=== PATIENT | male | born 1960 | race Caucasian/White ===

== ENCOUNTER 2023-09-24 05:44 | Emergency (ER) | payer OTHER, SELFPAY ==
[2023-09-24] VITALS (17 sets, daily range): BP systolic 157; BP diastolic 96; PULSE 73–108; RESP 13–23; TEMP 36.5; O2SAT 91–99; BMI 28.8
--- NOTE | 2023-09-24 05:45 | XRR_ITS ---
PROCEDURE INFORMATION: Exam: XR Chest Exam date and time: 09/24/2023 6:15 AM Age: 62 years old Clinical indication: Pain; Chest pressure; Additional info: Cp TECHNIQUE: Imaging protocol: Radiologic exam of the chest. Views: 1 view. COMPARISON: No relevant prior studies available. FINDINGS: Lungs: Mild chronic interstitial prominence. Pleural spaces: Unremarkable. No pleural effusion. No pneumothorax. Heart/Mediastinum: See Vasculature finding. Vasculature: Mild cardiomegaly and uncoiling of the thoracic aorta each accentuated by the AP positioning. Bones/joints: Unremarkable. XR/XR chest 1V portable [id number] IMPRESSION: No acute findings.
--- NOTE | 2023-09-24 05:46 | ECG_ITS ---
[facility] Test Date: 2023-09-24 Pat Name: Tl Nettles Department: Room: Gender: Male Sample Puller: : 1960 Requested By: Swetha Mejias Order Number: [id number] Gallito MD: John Owens M.D. Measurements Intervals [place] Rate: 98 P: 41 RI: 132 QRS: 82 QRSD: 144 T: 85 QT: 394 QTc: 503 Interpretive Statements SINUS RHYTHM POSSIBLE LEFT ATRIAL ENLARGEMENT [-0.1mV P-WAVE IN V1/V2] RIGHT BUNDLE BRANCH BLOCK [120+ ms QRS DURATION, UPRIGHT V1, 40+ ms S IN I/aVL/V4/V5/V6] No previous ECG available for comparison Electronically Signed On 09-24-2023 13:43:36 HISTOLOGY TECHNOLOGIST by John Owens M.D. [id number] f
--- NOTE | 2023-09-24 05:56 | ED_ITS ---
HPI - Chest Pain 2 General: Chief Complaint: Chest Pain Stated Complaint: CP Time Seen by Provider: 09/24/23 05:45 Source: patient Mode of arrival: ambulatory Limitations: no limitations History of Present Illness: 62-year-old male states that he woke up this morning at 4 AM with chest pains. He states it has been a pressure type pain he is also states he has had some intermittent pains over the last 2 days with shortness of breath he states he had a cough as well or fever states his pain is currently a 3 out of 10 he did receive aspirin nitro in route. Associated symptoms: Reports dyspnea; Deny abdominal pain, fever(s), nausea or vomiting Review of Systems 2 Const: Denies: fever(s), chills, body aches or change in appetite ENMT: Denies: throat pain or dental pain Card: Reports: chest pain Resp: Reports: dyspnea and non-productive cough GI: Denies: abdominal pain, nausea, vomiting or diarrhea Musc: Denies: neck pain or back pain Skin/Breast: Denies: rash Neuro: Denies: headache(s) Physical Exam 2 Const: COMMON NORMALS: no acute distress, patient oriented x3 and healthy appearing HENMT: COMMON NORMALS: normocephalic and atraumatic HEAD & SCALP: n ormocephalic and atraumatic Eye: COMMON NORMALS: Equal, round and reactive pupils present and EOMs intact bilaterally PUPIL: Yes Equal, round and reactive pupils present Neck/C-Spine: COMMON NORMALS: full ROM and supple Chest: COMMONS NORMALS: normal inspection of the chest and normal palpation of entire chest wall Resp: COMMON NORMALS: normal respiratory effort, No retractions, No use of accessory muscles and clear to auscultation bilaterally AUSCULTATION: clear to auscultation bilaterally Cardio: COMMON NORMALS: regular rate, regular rhythm and No murmurs present (Cardio) RATE: regular rate RHYTHM: regular rhythm GI: COMMON NORMALS: Normal to inspection, nondistended, normoactive bowel sounds present, Soft to palpation, non-tender and no masses PALPATION: Yes Soft to palpation Extremity: COMMON NORMALS: normal to inspection and full ROM Neuro: COMMON NORMALS: patient oriented x3, moves all extremities and no focal motor deficits Psych: COMMON NORMALS: mental status grossly normal, Normal thought process present and cooperative THOUGHT PROCESS: Normal thought process present Skin: COMMON NORMALS: no rashes or lesions noted and no wounds GENERAL SKIN EXAM: no rashes or lesions noted Course 2 Vital Signs: Vital signs: Vital Signs Temperature 97.7 F 09/24/23 05:45 Pulse Rate 108 H 09/24/23 08:40 Respiratory Rate 19 H 09/24/23 08:40 Blood Pressure 157/96 09/24/23 09:10 Pulse Oximetry 99 09/24/23 08:40 Oxygen Delivery Me thod Room Air 09/24/23 06:38 MDM - Chest Pain Medical Decision Making Patient presents for chest pain is atypical in nature he is also had cough shortness of breath CT showed a possible pneumonia we will start him on antibiotics. 2-hour troponins normal Medical Records I reviewed the patient's medical records. Lab Data I reviewed the patient's lab results. 09/24/23 06:00 09/24/23 06:00 Radiology Impressions Chest X-Ray 09/24/23 05:45 IMPRESSION: No acute findings. Chest CTA 09/24/23 06:32 IMPRESSION: Semi-solid infiltrates on the right. A mild pneumonia is probably present. Follow-up chest CT in 3 months recommended. Laboratory Results WBC 10.11 10^3/uL (3.29-11.43) 09/24/23 06:00 RBC 4.49 10^6/uL (3.85-5.65) 09/24/23 06:00 Hgb 13.70 g/dL (11.27-16.99) 09/24/23 06:00 Hct 40.9 % (37-53) 09/24/23 06:00 MCV 91.1 fl (82-101) 09/24/23 06:00 MCH 30.5 pg (27-33) 09/24/23 06:00 MCHC 33.5 g/dL (30-55) 09/24/23 06:00 RDW 12.5 % (12.1-15.1) 09/24/23 06:00 Plt Count 288 10^3/cmm (157-399) 09/24/23 06:00 MPV 9.1 fL (7.4-10.4) 09/24/23 06:00 Neut % (Auto) 55.7 % 09/24/23 06:00 Lymph % (Auto) 30.1 % 09/24/23 06:00 [place] % (Auto) 10.4 % 09/24/23 06:00 Eos % (Auto) 2.5 % 09/24/23 06:00 Baso % (Auto) 0.7 % 09/24/23 06:00 Neut # (Auto) 5.64 10^3/uL (1.8-7.7) 09/24/23 06:00 Lymph # (Auto) 3.0 10^3/uL (0.8-4.8) 09/24/23 06:00 [place] # (Auto) 1.1 10^3/uL (0.2-0.9) H 09/24/23 06:00 Eos # (Auto) 0.3 10^3/uL (0.0-0.8) 09/24/23 06:00 Baso # (Auto) 0.1 10^3/uL (0.0-0.1) 09/24/23 06:00 Nucleated RBC % (auto) 0 % 09/24/23 06:00 Nucleated RBCs # 0.0 /100WBC 09/24/23 06:00 D-Dimer 0.79 ug/mLFEU (0-0.59) H 09/24/23 06:00 Sodium 137 mmol/L (136-145) 09/24/23 06:00 Potassium 4.0 mmol/L (3.5-5.1) 09/24/23 06:00 Chloride 103 mmol/L (98-107) 09/24/23 06:00 Carbon Dioxide 23 mmol/L (22-29) 09/24/23 06:00 Anion Gap 15.0 (5-19) 09/24/23 06:00 BUN 15 mg/dL (8-23) 09/24/23 06:00 Creatinine 0.8 mg/dL (0.7-1.2) 09/24/23 06:00 GFR Calculation 98.6 mL/min (90-130) 09/24/23 06:00 Glucose 114 mg/dL (65-115) 09/24/23 06:00 Calculated Osmolality 286 mOsm/kg (285-295) 09/24/23 06:00 Calcium 9.2 mg/dL (8.5-10.5) 09/24/23 06:00 Total Bilirubin 0.3 mg/dL (0.15-1.2) 09/24/23 06:00 AST 35 U/L (0-40) 09/24/23 06:00 ALT 36 U/L (0-41) 09/24/23 06:00 Alkaline Phosphatase 84 U/L (40-130) 09/24/23 06:00 Troponin T Baseline 53 ng/L (0-15) H 09/24/23 06:00 Troponin T 120 Minute 53.11 ng/L (0-15) H 09/24/23 08:03 Delta Troponin T 0.11 ABS# (0-10) 09/24/23 08:03 NT-Pro-B Natriuret Pep 1790 pg/mL (0-125) H 09/24/23 06:00 Total Protein 6.8 g/dL (6.6-8.7) 09/24/23 06:00 Albumin 3.9 g/dL (3.5-5.2) 09/24/23 06:00 Globulin 2.9 g/dL (1.3-4.6) 09/24/23 06:00 All radiology interpretation(s) finalized by discharge EKG Data EKG 1: I personally reviewed and interpreted this EKG as follows: EKG interpretation date: 09/24/23 EKG interpretation time: 05:49 Interpretation: nsr hr [address] or t wave abnormalities qrs 144 qtc 449 Discharge Plan Discharge Patient Disposition: Home Clinical Impression: Pneumonia Chest pain Qualifiers: Chest pain type: unspecified Qualified Code(s): R07.9 - Chest pain, unspecified Condition: Stable Prescriptions: New doxycycline hyclate 100 mg tablet 100 mg PO BID 7 Days Qty: 14 0RF No Action Aspir-81 81 mg Tablet,Delayed Release (Dr/Ec) 81 mg PO DAILY PRN (Reason: Headache) Discharge Orders: Discharge ED (Routine); Ordered 09/24/23 Ordered By: Swetha Mejias Discharge Diet: Advance as tolerated Discharge Activity: Resume usual activity Patient Instructions: Chest Pain (ED), Community Acquired Pneumonia (ED) Coding Level of Care Code ED Front End Drupal Developer for Sherrig Violet
[2023-09-24 06:06] LABS: Basophils # 0.1 10^3/uL (0.0-0.1); Basophils % 0.7 %; Eosinophils # 0.3 10^3/uL (0.0-0.8); Eosinophils % 2.5 %; Hematocrit 40.9 % (37-53); Lymphocytes % 30.1 %; Mean Corpuscular HGB Conc 33.5 g/dL (30-55); Mean Corpuscular Hemoglobin 30.5 pg (27-33); Mean Corpuscular Volume 91.1 fl (82-101); Mean Platelet Volume 9.1 fL (7.4-10.4); Monocytes # 1.1 10^3/uL (0.2-0.9); Monocytes % 10.4 %; Neutrophils # 5.64 10^3/uL (1.8-7.7); Neutrophils % 55.7 %; Nucleated Red Blood Cells % 0 %; Platelet Count 288 10^3/cmm (157-399); Red Blood Count 4.49 10^6/uL (3.85-5.65); Red Cell Distribution Width 12.5 % (12.1-15.1); White Blood Count 10.11 10^3/uL (3.29-11.43)
[2023-09-24 06:22] LABS: D Dimer 0.79 ug/mLFEU (0-0.59)
[2023-09-24 06:27] LABS: Troponin(5th) Baseline 53 ng/L (0-15)
[2023-09-24] MEDS: ipratropium-albuterol 3 mL Neb INHALATION (06:31)
--- NOTE | 2023-09-24 06:32 | CTR_ITS ---
PROCEDURE INFORMATION: Exam: CTA Chest With Contrast Exam date and time: 09/24/2023 6:50 AM Age: 62 years old Clinical indication: Shortness of breath; Additional info: SOB TECHNIQUE: Imaging protocol: Computed tomographic angiography of the chest with contrast. Exam focused on the arteries. 3D rendering (Not supervised by radiologist): MIP and/or 3D reconstructed images were created by the technologist. Radiation optimization: All CT scans at this facility use at least one of these dose optimization techniques: automated exposure control; mA and/or kV adjustment per patient size (includes targeted exams where dose is matched to clinical indication); or iterative reconstruction. Contrast material: OMNI 350; Contrast volume: 86 ml; Contrast route: INTRAVENOUS (IV); REPORTING DATA: Count of CT and Cardiac NM exams in prior 12 months: This patient has received 0 known CTs and 0 known cardiac nuclear medicine studies in the 12 months prior to the current study. COMPARISON: CR (CHEST, ) 09/24/2023 6:15 AM RADIATION DOSE METRICS: Total DLP (mGy-cm): 483.66 FINDINGS: Pulmonary arteries: No evidence of pulmonary embolus. Mild/moderate central adenopathy is present, some of the lymph nodes contain calcifications. Aorta: Unremarkable. No aortic aneurysm. No aortic dissection. Lungs: Small semi-solid opacities in the right lower lobe are probably infiltrates. Follow-up chest CT in 3 months recommended to ensure resolution. Pleural spaces: Very small right pleural effusion. Heart: Unremarkable. No cardiomegaly. No pericardial effusion. Lymph nodes: See Pulmonary arteries finding. Bones/joints: Unremarkable. No acute fracture. Soft tissues: Unremarkable. CT/CT angio chest PE protcl [id number] IMPRESSION: Semi-solid infiltrates on the right. A mild pneumonia is probably present. Follow-up chest CT in 3 months recommended.
[2023-09-24 06:35] LABS: Alanine Aminotransferase 36 U/L (0-41); Albumin Level 3.9 g/dL (3.5-5.2); Alkaline Phosphatase 84 U/L (40-130); Aspartate Amino Transferase 35 U/L (0-40); Blood Urea Nitrogen 15 mg/dL (8-23); Calcium 9.2 mg/dL (8.5-10.5); Carbon Dioxide 23 mmol/L (22-29); Chloride 103 mmol/L (98-107); Globulin 2.9 g/dL (1.3-4.6); Glomerular Filtration Rate 98.6 mL/min (90-130); Glucose 114 mg/dL (65-115); NT Pro B Type Natriuretic Pept 1790 pg/mL (0-125); Osmolality Calculated 286 mOsm/kg (285-295); Sodium 137 mmol/L (136-145); Total Bilirubin 0.3 mg/dL (0.15-1.2); Total Protein 6.8 g/dL (6.6-8.7)
[2023-09-24] MEDS: iohexol 350 mg/mL 500 mL Btl (per mL) IV (07:01)
--- NOTE | 2023-09-24 07:31 | ECG_ITS ---
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 Measurements Intervals [place] Rate: 84 P: 46 TX: 164 QRS: 70 QRSD: 141 T: 97 QT: 426 QTc: 506 Interpretive Statements SINUS RHYTHM WITH OCCASIONAL SUPRAVENTRICULAR PREMATURE COMPLEXES POSSIBLE LEFT ATRIAL ENLARGEMENT [-0.1mV P-WAVE IN V1/V2] RIGHT BUNDLE BRANCH BLOCK [120+ ms QRS DURATION, UPRIGHT V1, 40+ ms S IN I/aVL/V4/V5/V6] No previous ECG available for comparison Electronically Signed On 09-24-2023 13:44:20 SIDEWALK REPAIRER by John Owens M.D. [id number]
--- NOTE | 2023-09-24 07:35 | PC.PHAR ---
pt states he takes no prescription medications-pt states only takes a 81mg aspirin prn for headaches-pt states he had a stroke in 2012 and was on bp meds and blood thinners and other medications he cant remember but states he didnt even take them for a full year states they made him feel worse so he just stop taking them and has been okay without them
[2023-09-24 08:31] LABS: Troponin 5 2HR 53.11 ng/L (0-15); Troponin 5 2HR Delta 0.11 ABS# (0-10)
--- NOTE | 2023-09-24 09:41 | DCPLANNER ---
Message was sent to [facility] to establish PCP. Clinic will contact patient for apt. I sent referral at [phone] on 09/24
== END 2023-09-24 09:19 | disposition home or self-care (01) ==
PROVIDERS: Emergency Provider Emergency Medicine
DX: R07.9 Chest pain, unspecified (principal); J18.9 Pneumonia, unspecified organism
CPT/HCPCS: 36415; 71045; 71275; 80053; 83880; 84484; 85025; 85378; 93005; 94640; 99285; Q9967

== ENCOUNTER 2023-10-30 04:35 | Inpatient (IN) | payer OTHER, SELFPAY ==
[2023-10-30] VITALS (18 sets, daily range): BP systolic 121–171; BP diastolic 75–117; PULSE 93–111; RESP 14–22; TEMP 36.5–36.7; O2SAT 92–98
--- NOTE | 2023-10-30 04:36 | ECG_ITS ---
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 Measurements Intervals [place] Rate: 109 P: 0 IN: 0 QRS: 111 QRSD: 148 T: 7 QT: 383 QTc: 517 Interpretive Statements Sinus tachycardia RIGHT BUNDLE BRANCH BLOCK [120+ ms QRS DURATION, UPRIGHT V1, 40+ ms S IN I/aVL/V4/V5/V6] LEFT POSTERIOR FASCICULAR BLOCK [QRS AXIS > 109, INFERIOR Q] Compared to ECG 09/24/2023 07:31:19 Left posterior fascicular block now present Sinus rhythm no longer present Electronically Signed On 10-30-2023 9:45:01 MOLDED GOODS OPERATOR by John Owens M.D. [id number] f
--- NOTE | 2023-10-30 04:36 | XRR_ITS ---
PROCEDURE INFORMATION: Exam: XR Chest Exam date and time: 10/30/2023 4:41 AM Age: 62 years old Clinical indication: Pain; Shortness of breath; Chest pressure; Patient HX: C/O cp with SOB. TECHNIQUE: Imaging protocol: Radiologic exam of the chest. Views: 1 view. COMPARISON: CT angio chest PE protcl [id number] 09/24/2023 6:50 AM FINDINGS: Lungs: Low lung volumes. There is increased interstitial markings and haziness of the lungs, which in the setting of cardiomegaly is suggestive of pulmonary congestion. Pneumonia should be excluded clinically. Pleural spaces: Unremarkable. No pleural effusion. No pneumothorax. Heart/Mediastinum: Stable cardiomediastinal silhouette. Bones/joints: Degenerative changes of the spine seen. XR/XR chest 1V portable [id number] IMPRESSION: Imaging findings suggestive of pulmonary congestion. Pneumonia should be excluded clinically.
--- NOTE | 2023-10-30 04:59 | ED_ITS ---
HPI - Chest Pain 2 General: Chief Complaint: Chest Pain Stated Complaint: CP Time Seen by Provider: 10/30/23 04:35 Source: patient and EMS Mode of arrival: EMS Limitations: no limitations History of Present Illness: 62-year-old male states that over the st week he has been having intermittent chest pains he is also been having shortness of breath as well. He states been treated for pneumonia but states his dyspnea is worsened. He denies any severe cough. Patient is on 3 L oxygen here states he typically does not wear oxygen at home. Denies any worsening improving factors. Associated symptoms: Reports dyspnea; Deny abdominal pain, fever(s), nausea or vomiting Review of Systems 2 Const: Denies: fever(s), chills, body aches or change in appetite ENMT: Denies: throat pain or dental pain Card: Reports: chest pain Resp: Reports: dyspnea GI: Denies: abdominal pain, nausea, vomiting or diarrhea Musc: Denies: neck pain or back pain Skin/Breast: Denies: rash Neuro: Denies: headache(s) PFSH ED 2 PFSH: Medical History (Updated 10/30/23 @ 06:50 by Saleem Cardozo MD) HTN (hypertension) with goal to be determined History of CVA (cerebrovascular accident) Surgical History (Updated 10/30/23 @ 06:47 by Saleem Cardozo MD) History of appendectomy Family History (Updated 10/30/23 @ 06:48 by Saleem Cardozo MD) Other CAD (coronary artery disease) Social History (Updated 10/30/23 @ 06:48 by Saleem Cardozo MD) Smoking and tobacco/nicotine status: current every day tobacco/nicotine user Alcohol intake: never Substance/Drug Use: never Course 2 Vital Signs: Vital signs: Vital Signs Temperature 98.0 F 10/30/23 16:00 Pulse Rate 103 H 10/30/23 16:00 Respiratory Rate 14 10/30/23 16:00 Blood Pressure 121/75 10/30/23 16:00 Pulse Oximetry 93 10/30/23 16:00 Oxygen Delivery Me thod Nasal Cannula 10/30/23 16:00 Oxygen Flow Rate 2 10/30/23 13:14 MDM - Chest Pain Medical Decision Making Patient presents for shortness of breath he does have pulmonary edema cardiomegaly likely CHF exacerbation. Brian wynn spoke to the hospitalist will admit as he is requiring oxygen at this time. Medical Records I reviewed the patient's medical records. Lab Data I reviewed the patient's lab results. 10/30/23 04:49 10/30/23 04:49 Radiology Impressions Chest X-Ray 10/30/23 04:36 IMPRESSION: Imaging findings suggestive of pulmonary congestion. Pneumonia should be excluded clinically. Chest CTA 10/30/23 05:25 IMPRESSION: 1. No pulmonary embolus. 2. Imaging findings of pulmonary edema with small bilateral pleural effusions. COMMENTS: The presence of pulmonary emphysema on CT is an independent risk factor for lung cancer. In the absence of a history or active diagnosis of lung cancer, it is recommended that this patient with emphysema be evaluated for enrollment in a low dose CT lung cancer screening program. Abdomen/Pelvis CT 10/30/23 14:31 IMPRESSION: 1. High density material throughout the intrarenal collecting systems, renal pelves, and ureters bilaterally as well as throughout the urinary bladder. This is probably excreted contrast if intravascular contrast has been recently given. If not, then this is probably blood. Please correlate clinically. 2. Additional details as above. COMMENTS: Consistent with the [employer] [employer]'s Incidental Findings Committee white paper (J Am Mansoor Radiol 2018): Any incidental renal lesion less than 1 cm or classified as too small to characterize, or any incidental cystic renal lesion characterized as simple-appearing, is likely benign. No follow-up imaging is recommended for these lesions per consensus recommendations based on imaging criteria. Laboratory Results WBC 9.43 10^3/uL (3.29-11.43) 10/30/23 04:49 RBC 4.56 10^6/uL (3.85-5.65) 10/30/23 04:49 Hgb 13.70 g/dL (11.27-16.99) 10/30/23 04:49 Hct 40.9 % (37-53) 10/30/23 04:49 MCV 89.7 fl (82-101) 10/30/23 04:49 MCH 30.0 pg (27-33) 10/30/23 04:49 MCHC 33.5 g/dL (30-55) 10/30/23 04:49 RDW 13.2 % (12.1-15.1) 10/30/23 04:49 Plt Count 261 10^3/cmm (157-399) 10/30/23 04:49 MPV 9.3 fL (7.4-10.4) 10/30/23 04:49 Neut % (Auto) 59.0 % 10/30/23 04:49 Lymph % (Auto) 28.3 % 10/30/23 04:49 [place] % (Auto) 9.7 % 10/30/23 04:49 Eos % (Auto) 1.9 % 10/30/23 04:49 Baso % (Auto) 0.5 % 10/30/23 04:49 Neut # (Auto) 5.56 10^3/uL (1.8-7.7) 10/30/23 04:49 Lymph # (Auto) 2.7 10^3/uL (0.8-4.8) 10/30/23 04:49 [place] # (Auto) 0.9 10^3/uL (0.2-0.9) 10/30/23 04:49 Eos # (Auto) 0.2 10^3/uL (0.0-0.8) 10/30/23 04:49 Baso # (Auto) 0.1 10^3/uL (0.0-0.1) 10/30/23 04:49 Nucleated RBC % (auto) 0 % 10/30/23 04:49 Nucleated RBCs # 0.0 /100WBC 10/30/23 04:49 PT 14.70 SECONDS (12.1-14.9) 10/30/23 04:49 INR 1.11 (0.8-1.2) 10/30/23 04:49 D-Dimer 1.07 ug/mLFEU (0-0.59) H 10/30/23 04:49 Sodium 138 mmol/L (136-145) 10/30/23 04:49 Potassium 3.7 mmol/L (3.5-5.1) 10/30/23 04:49 Chloride 103 mmol/L (98-107) 10/30/23 04:49 Carbon Dioxide 25 mmol/L (22-29) 10/30/23 04:49 Anion Gap 13.7 (5-19) 10/30/23 04:49 BUN 14 mg/dL (8-23) 10/30/23 04:49 Creatinine 0.8 mg/dL (0.7-1.2) 10/30/23 04:49 GFR Calculation 98.6 mL/min (90-130) 10/30/23 04:49 Glucose 119 mg/dL (65-115) H 10/30/23 04:49 Estimat Average Glucose 123 10/30/23 04:49 Hemoglobin A1c 5.9 % (4.0-6.0) 10/30/23 04:49 Calculated Osmolality 288 mOsm/kg (285-295) 10/30/23 04:49 Lactic Acid 1.2 mmol/L (0.5-2.2) 10/30/23 04:49 Calcium 9.4 mg/dL (8.5-10.5) 10/30/23 04:49 Phosphorus 4.3 mg/dL (2.5-4.5) 10/30/23 04:49 Magnesium 1.9 mg/dL (1.7-2.3) 10/30/23 04:49 Total Bilirubin 0.4 mg/dL (0.15-1.2) 10/30/23 04:49 AST 43 U/L (0-40) H 10/30/23 04:49 ALT 45 U/L (0-41) H 10/30/23 04:49 Alkaline Phosphatase 79 U/L (40-130) 10/30/23 04:49 Troponin T Baseline 52 ng/L (0-15) H 10/30/23 04:49 C-Reactive Protein 13.8 mg/L (0.0-4.9) H 10/30/23 04:49 NT-Pro-B Natriuret Pep 3650 pg/mL (0-125) H 10/30/23 04:49 Total Protein 6.7 g/dL (6.6-8.7) 10/30/23 04:49 Albumin 4.1 g/dL (3.5-5.2) 10/30/23 04:49 Globulin 2.6 g/dL (1.3-4.6) 10/30/23 04:49 Triglycerides 68 mg/dL (0-150) 10/30/23 04:49 Cholesterol 171 mg/dL (0-200) 10/30/23 04:49 LDL Cholesterol, Calc 112 mg/dL (50-129) 10/30/23 04:49 HDL Cholesterol 45 mg/dL (60-100) L 10/30/23 04:49 LDL/HDL Ratio 2.49 RATIO (0.00-3.22) 10/30/23 04:49 Cholesterol/HDL Ratio 3.80 mg/dL (1.0-5.00) 10/30/23 04:49 Procalcitonin 0.05 ng/mL (0-0.5) 10/30/23 04:49 TSH 2.43 uIU/mL (0.27-4.20) 10/30/23 04:49 Influenza Type A Ag negative (Negative) 10/30/23 04:49 Influenza Type B Ag negative (Negative) 10/30/23 04:49 SARS-CoV-2 Ag (Rapid) negative (Negative) 10/30/23 04:49 All radiology interpretation(s) finalized by discharge EKG Data EKG 1: I personally reviewed and interpreted this EKG as follows: EKG interpretation date: 10/30/23 EKG interpretation time: 04:42 Interpretation: atrial flutter hr [address] elevation qrs 148 qtc 447 Discharge Plan Discharge Patient Disposition: Admitted As Inpatient Admit Provider: Saleem Cardozo Clinical Impression: Acute respiratory failure with hypoxemia Pulmonary edema Qualifiers: Chronicity: acute Qualified Code(s): J81.0 - Acute pulmonary edema Condition: Stable Coding Level of Care Code ED Cobbler Apprentice for Josep Lazo
[2023-10-30 05:01] LABS: Basophils # 0.1 10^3/uL (0.0-0.1); Basophils % 0.5 %; Eosinophils # 0.2 10^3/uL (0.0-0.8); Eosinophils % 1.9 %; Hematocrit 40.9 % (37-53); Lymphocytes # 2.7 10^3/uL (0.8-4.8); Lymphocytes % 28.3 %; Mean Corpuscular HGB Conc 33.5 g/dL (30-55); Mean Corpuscular Volume 89.7 fl (82-101); Mean Platelet Volume 9.3 fL (7.4-10.4); Monocytes # 0.9 10^3/uL (0.2-0.9); Monocytes % 9.7 %; Neutrophils # 5.56 10^3/uL (1.8-7.7); Nucleated Red Blood Cells % 0 %; Platelet Count 261 10^3/cmm (157-399); Red Blood Count 4.56 10^6/uL (3.85-5.65); Red Cell Distribution Width 13.2 % (12.1-15.1); White Blood Count 9.43 10^3/uL (3.29-11.43)
[2023-10-30] MEDS: dilTIAZem 5 mg/mL SDV 5 mL 15 MG IVP (05:01)
[2023-10-30 05:14] LABS: INR 1.11 (0.8-1.2)
[2023-10-30 05:17] LABS: D Dimer 1.07 ug/mLFEU (0-0.59)
[2023-10-30 05:24] LABS: Troponin(5th) Baseline 52 ng/L (0-15)
--- NOTE | 2023-10-30 05:25 | CTR_ITS ---
PROCEDURE INFORMATION: Exam: CTA Chest With Contrast Exam date and time: 10/30/2023 5:31 AM Age: 62 years old Clinical indication: Pain and abnormal findings; Abnormal diagnostic tests; Elevated d-dimer; Shortness of breath; Chest pressure; Patient HX: Cp with SOB. Dimer 1.07 TECHNIQUE: Imaging protocol: Computed tomographic angiography of the chest with contrast. Exam focused on the arteries. 3D rendering (Not supervised by radiologist): MIP and/or 3D reconstructed images were created by the technologist. Radiation optimization: All CT scans at this facility use at least one of these dose optimization techniques: automated exposure control; mA and/or kV adjustment per patient size (includes targeted exams where dose is matched to clinical indication); or iterative reconstruction. Contrast material: OMNI 350; Contrast volume: 100 ml; Contrast route: INTRAVENOUS (IV); COMPARISON: CT angio chest PE protcl [id number] 09/24/2023 6:50 AM RADIATION DOSE METRICS: Total DLP (mGy-cm): 493.68 FINDINGS: Pulmonary arteries: Normal. No pulmonary emboli. Aorta: No aortic aneurysm. No aortic dissection. Mild diffuse atherosclerotic disease is present. Lungs: Mild paraseptal emphysema is present. There is slight mosaic pattern of attenuation of the lungs, in association with scattered bilateral ground-glass opacities, paraseptal thickening and small bilateral pleural effusions, which in the setting of cardiomegaly is consistent with pulmonary edema. Compressive bilateral atelectasis noted. Pneumonia should be excluded clinically. No pneumothorax. Tiny calcified granuloma noted in the right lobe upper lobe. Pleural spaces: See Lungs finding. Heart: Mildly enlarged heart. Normal RV/LV ratio of 0.9. Coronary atherosclerotic calcifications seen. No pericardial effusion. Lymph nodes: Small reactive mediastinal lymph nodes noted, the largest in the right paratracheal region measuring 1.3 cm in transverse dimension. Small mediastinal and right hilar calcified lymph nodes noted, likely sequela of previous granulomatous disease. Bones/joints: Degenerative changes of the spine seen. Soft tissues: Unremarkable. CT/CT angio chest PE protcl [id number] IMPRESSION: 1. No pulmonary embolus. 2. Imaging findings of pulmonary edema with small bilateral pleural effusions. COMMENTS: The presence of pulmonary emphysema on CT is an independent risk factor for lung cancer. In the absence of a history or active diagnosis of lung cancer, it is recommended that this patient with emphysema be evaluated for enrollment in a low dose CT lung cancer screening program.
[2023-10-30 05:29] LABS: Alanine Aminotransferase 45 U/L (0-41); Albumin Level 4.1 g/dL (3.5-5.2); Alkaline Phosphatase 79 U/L (40-130); Anion Gap 13.7 (5-19); Aspartate Amino Transferase 43 U/L (0-40); Blood Urea Nitrogen 14 mg/dL (8-23); Calcium 9.4 mg/dL (8.5-10.5); Carbon Dioxide 25 mmol/L (22-29); Chloride 103 mmol/L (98-107); Globulin 2.6 g/dL (1.3-4.6); Glomerular Filtration Rate 98.6 mL/min (90-130); Glucose 119 mg/dL (65-115); NT Pro B Type Natriuretic Pept 3650 pg/mL (0-125); Osmolality Calculated 288 mOsm/kg (285-295); Potassium 3.7 mmol/L (3.5-5.1); Sodium 138 mmol/L (136-145); Total Bilirubin 0.4 mg/dL (0.15-1.2); Total Protein 6.7 g/dL (6.6-8.7)
[2023-10-30 05:31] LABS: Influenza A by IFA negative (Negative); Influenza B by IFA negative (Negative)
[2023-10-30 05:32] LABS: SARS Covid-2 Antigen negative (Negative)
[2023-10-30] MEDS: iohexol 350 mg/mL 500 mL Btl (per mL) IV (05:42)
[2023-10-30] MEDS: FUROsemide 10 mg/mL SDV 4mL 40 MG IVP ×2 (05:50→12:51)
--- NOTE | 2023-10-30 06:40 | USCV_ITS ---
Tl Nettles Age: 62 Gender: M : 1960 Exam Date: 10/30/2023 09:46 Ordering Phys: Saleem Cardozo MD Technologist: Reynold Gu Exam Location[place] [facility] [place] Indication: sob BP: 153 / 90 HR: 107 Rhythm: Sinus Technical Quality: Poor MEASUREMENTS (Male / Female) Normal Values 2D ECHO LV Ejection Fraction MOD 2C 29.7 % LV Ejection Fraction 2C AL 31.1 % LA Diameter 3.8 cm LA Width 4.0 cm LA Height 5.4 cm RA Width 4.4 cm RA Height 4.1 cm IVC Diameter 1.8 cm M-MODE Aortic Annulus Diameter 3.0 cm LA Ao Ratio MM 1.2 MV E Point Septal Separation 1.1 cm DOPPLER AV Peak Velocity 139.0 cm/s LVOT Peak Velocity 67.0 cm/s MV Peak Velocity 137.0 cm/s MV E' Velocity 6.0 cm/s TR Peak Velocity 211.8 cm/s TR Peak Gradient 17.9 mmHg TR Mean Velocity 162.8 cm/s TR Mean Gradient 11.2 mmHg TR Velocity Time Integral 46.0 cm Right Atrial Pressure 3.0 mmHg Pulmonary Artery Systolic Pressu 20.9 mmHg PV Peak Velocity 78.0 cm/s RV Acceleration Time 0.1 s RV Ejection Time 0.2 s RV AcT/ET 0.4 FINDINGS Left Ventricle The examination is technically poor with exception of the apical view. The ventricle appears at least mildly enlarged. There appears to be global hypokinesis in the apical view with an ejection fraction of about 35%. There are no obvious wall motion disturbances however the other views would confirm this if they were present. Grade 2 diastolic dysfunction. Right Ventricle Normal right ventricular size and systolic function. Normal right ventricular systolic pressure. Right Atrium Mildly increased right atrial size. Left Atrium Mildly increased left atrial size. Mitral Valve Mitral valve not well visualized. Aortic Valve Aortic valve not well visualized. Tricuspid Valve Tricuspid valve not well visualized. Pulmonic Valve Pulmonic valve not well visualized. Pericardium Normal pericardium without effusion. Aorta Aorta not well visualized. IVC The inferior vena cava appears normal. CONCLUSIONS The examination is technically poor with exception of the apical view. The ventricle appears at least mildly enlarged. There appears to be global hypokinesis in the apical view with an ejection fraction of about 35%. There are no obvious wall motion disturbances however the other views would confirm this if they were present. Grade 2 diastolic dysfunction. There are no prior echocardiogram studies to compare. Dr. John Owens MD (Electronically Signed) Final Date: 30 October 2023 17:21 S
--- NOTE | 2023-10-30 06:44 | P.HP_ITS ---
Providers/Chief Complaint 2 Admitting Physician: Saleem Cardozo MD Chief Complaint: CP History of Present Illness Tl Nettles is a 62 year old male current smoker, has been smoking since he is 17, no formal diagnosis of COPD, history of CVA, no history of CAD, no history of CHF, history of depression, hypertension, who presents to [facility] due to a 2-week history of shortness of breath, and cough. Patient tells me that for the last 2 weeks he is felt increasingly short of breath, shortness of breath with exertion, with a nonproductive cough, he presented to the emergency room about 2 weeks ago he, completed antibiotic therapy however continues to have shortness of breath and cough saw his primary care provider got another course of antibiotics but continued to have shortness of breath, denies any current chest pain, nonproductive cough persists, no hemoptysis, no calf pain, no recent travel Review of Systems 2 Const: Denies: fever(s) or chills Card: Denies: chest pain Resp: Reports: dyspnea and non-productive cough GI: Denies: abdominal pain : Denies: flank pain Neuro: Denies: headache(s) Medications/Allergies Home Medications Medication Instructions Recorded Confirmed Last Taken Type aspirin 81 mg tablet,delayed 81 mg PO DAILY PRN Headache 09/24/23 09/24/23 Unknown History release Allergies Allergy/AdvReac Type Severity Reaction Status Date / Time No Known Allergies Allergy Verified 09/24/23 05:54 PFSH Acute 2 PFSH: Medical History (Updated 10/30/23 @ 06:50 by Saleem Cardozo MD) HTN (hypertension) with goal to be determined History of CVA (cerebrovascular accident) Surgical History (Updated 10/30/23 @ 06:47 by Saleem Cardozo MD) History of appendectomy Family History (Updated 10/30/23 @ 06:48 by Saleem Cardozo MD) Other CAD (coronary artery disease) Social History (Updated 10/30/23 @ 06:48 by Saleem Cardozo MD) Smoking and tobacco/nicotine status: current every day tobacco/nicotine user Alcohol intake: never Substance/Drug Use: never Vitals/I&O/Wt Last Vital Signs Temp 97.7 F 10/30/23 04:44 Pulse 93 10/30/23 05:51 Resp 16 10/30/23 05:51 BP 149/99 10/30/23 05:51 Pulse Ox 93 10/30/23 05:53 O2 Del Method Room Air 10/30/23 05:53 O2 Flow Rate 2 10/30/23 05:51 Weight last 48 hrs Weight 89.358 kg Physical Exam 2 Const: COMMON NORMALS: no acute distress and patient oriented x3 HENMT: COMMON NORMALS: normocephalic HEAD & SCALP: normocephalic Eye: COMMON NORMALS: Equal, round and reactive pupils present and EOMs intact bilaterally Neck/C-Spine: COMMON NORMALS: no JVD Lymph: LYMPHATIC: no lymphadenopathy noted Resp: COMMON NORMALS: normal respiratory effort, No retractions and No use of accessory muscles AUSCULTATION: crackles and wheezes Cardio: COMMON NORMALS: regular rate, regular rhythm, S1 normal heart sound present and S2 normal heart sound present RATE: regular rate RHYTHM: r egular rhythm HEART SOUNDS: S1 normal heart sound present and S2 normal heart sound present GI: COMMON NORMALS: Normal to inspection, nondistended, normoactive bowel sounds present, Soft to palpation and non-tender Extremity: COMMON NORMALS: no calf tenderness and no pedal edema Neuro: COMMON NORMALS: patient oriented x3, CN's II-XII intact bilaterally and moves all extremities Data 10/30/23 04:49 10/30/23 04:49 A&P Assessment and plan (1) COPD exacerbation: (2) CHF exacerbation: (3) NSTEMI (non-ST elevated myocardial infarction): (4) Transaminitis: Plan Shortness of breath ? Multifactorial from COPD, CHF COPD ? No formal diagnosis, ? Solu-Medrol 40 mg IV push every 8 hours ?DuoNeb ?budesonide CHF exacerbation -Type unknown -Elevated BNP -CT angiogram showing pulmonary edema -Lasix 40 mg IV push every 12 hours NSTEMI -Serial EKGs, serial troponins, telemetry monitoring -Cardiac echo -aspirin, statin, bblocker afib/atrial tachycardia -s/p cardizem -telemetry monitoring -currently in sinus rhythm Transaminitis HTN -metoprolol Full code Lovenox for DVT prophylaxis Attestations 2 Medical Necessity Statement*: Patient requires hospitalization, inpatient, greater than 2 minutes, for shortness of breath secondary to COPD exacerbation, CHF exacerbation, NSTEMI, transaminitis Diagnoses COPD exacerbation J44.1 CHF exacerbation I50.9 NSTEMI (non-ST elevated myocardial infarction) I21.4 Transaminitis R74.01
[2023-10-30 07:02] LABS: Add Urine Microscopic? NO; Charge for UA Resulting for Rev
[2023-10-30 07:10] LABS: Bilirubin Urine Neg (Negative); Blood Urine Neg (Negative); Glucose Urine UA Norm (Normal); Ketones Urine Negative (Negative); Leukocyte Esterase Urine Negative (Negative); Nitrate Urine Negative (Negative); Protein Urine Neg (Negative); Urine Appearance Clear (CLEAR); Urine Color Straw (Yellow); Urobilinogen Urine Norm (Negative); pH Urine 5 (5-7)
[2023-10-30 07:19] LABS: Lactic Sepsis W/Reflex 1.2 mmol/L (0.5-2.2)
[2023-10-30 07:21] LABS: Estmated Average Glucose 123; Hemoglobin A1C 5.9 % (4.0-6.0)
[2023-10-30 07:25] LABS: Procalcitonin 0.05 ng/mL (0-0.5); Thyroid Stimulating Hormone 2.43 uIU/mL (0.27-4.20)
[2023-10-30 07:36] LABS: C Reactive Protein 13.8 mg/L (0.0-4.9); Cholesterol 171 mg/dL (0-200); HDL Cholesterol 45 mg/dL (60-100); LDL Cholesterol Calculated 112 mg/dL (50-129); LDL HDL Ratio 2.49 RATIO (0.00-3.22); Magnesium 1.9 mg/dL (1.7-2.3); Phosphorus 4.3 mg/dL (2.5-4.5); Triglycerides 68 mg/dL (0-150)
[2023-10-30 07:41] LABS: INR 1.12 (0.8-1.2)
[2023-10-30 07:49] LABS: ABG PCO2 39.5 mmHg (35-45); ABG PH Result 7.43 (7.35-7.45); Arterial Blood Gas Hematocrit 44.3 % (42-52); Base Excess ABG 1.8 mmol/L (-2.0-2.0); Blood Gas Allen Test Pos; Blood Gas Operator Identificat MONRO; Blood Gas Sample Site Radial, left; Blood Gas Sample Type Arterial; HCO3 ABG 26.2 mmol/L (22-26); Oxygen Device ROOM AIR; PO2 ABG 76.2 mmHg (80.0-100.0); PO2 FiO2 Ratio Arterial Blood 0
[2023-10-30 07:51] LABS: Troponin 5 2HR 56.99 ng/L (0-15); Troponin 5 2HR Delta 4.99 ABS# (0-10)
[2023-10-30] MEDS: pantoprazole 40 mg SDV IVP (08:02)
[2023-10-30] MEDS: enoxaparin 40 mg/0.4 mL Syringe SUBCUT (08:02)
[2023-10-30] MEDS: aspirin 81 mg EC Tablet PO (08:03)
[2023-10-30] MEDS: methylPREDNISolone sod succ 40 mg/mL INJ IVP (08:03)
[2023-10-30] MEDS: budesonide 0.5 mg/2 mL Neb 0.25 MG INHALATION ×2 (09:04→20:46)
[2023-10-30] MEDS: ipratropium-albuterol 3 mL Neb INHALATION ×3 (09:04→20:46)
--- NOTE | 2023-10-30 09:15 | ECG_ITS ---
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 Measurements Intervals [place] Rate: 106 P: 54 OR: 166 QRS: 105 QRSD: 147 T: 26 QT: 392 QTc: 523 Interpretive Statements SINUS TACHYCARDIA LEFT ATRIAL ENLARGEMENT [-0.15mV P-WAVE IN V1/V2] RIGHT AXIS DEVIATION [QRS AXIS > 100] RIGHT BUNDLE BRANCH BLOCK [120+ ms QRS DURATION, UPRIGHT V1, 40+ ms S IN I/aVL/V4/V5/V6] Compared to ECG 10/30/2023 04:42:22 Atrial abnormality now present Right-axis deviation now present Left posterior fascicular block no longer present Electronically Signed On 10-31-2023 8:34:44 PULL TAB DEALER by John Owens M.D. [id number]
[2023-10-30] MEDS: metoprolol tartrate 25 mg Tablet PO ×2 (09:55→20:53)
--- NOTE | 2023-10-30 10:01 | PC.PHAR ---
pt states he takes no prescription medications only aspirin prn
--- NOTE | 2023-10-30 12:01 | W.PM.EVENTAC ---
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
[2023-10-30 12:32] LABS: Troponin 5 6HR 45.31 ng/L (0-15)
[2023-10-30 12:34] LABS: Troponin 5 6HR Delta -6.69 ng/L (0-12)
[2023-10-30] MEDS: doxycycline 100 mg Tablet PO ×2 (12:51→17:37)
--- NOTE | 2023-10-30 13:19 | ECG_ITS ---
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 Measurements Intervals [place] Rate: 101 P: 19 WA: 156 QRS: -2 QRSD: 153 T: 25 QT: 411 QTc: 533 Interpretive Statements SINUS TACHYCARDIA LEFT ATRIAL ENLARGEMENT [-0.15mV P-WAVE IN V1/V2] INDETERMINATE AXIS RIGHT BUNDLE BRANCH BLOCK [120+ ms QRS DURATION, UPRIGHT V1, 40+ ms S IN I/aVL/V4/V5/V6] MODERATE T-WAVE ABNORMALITY, CONSIDER LATERAL ISCHEMIA [-0.1+ mV T-WAVE IN I/aVL/V5/V6] MODERATE T-WAVE ABNORMALITY, CONSIDER INFERIOR ISCHEMIA [-0.1+ mV T-WAVE IN II/aVF] Compared to ECG 10/30/2023 09:15:41 Indeterminate axis now present T-wave abnormality now present Possible ischemia now present Right-axis deviation no longer present Electronically Signed On 10-31-2023 8:28:34 JORDAN WORKER by John Owens M.D. [id number]
--- NOTE | 2023-10-30 14:31 | CTR_ITS ---
PROCEDURE INFORMATION: Exam: CT Abdomen And Pelvis Without Contrast Exam date and time: 10/30/2023 3:15 PM Age: 62 years old Clinical indication: Abdominal pain; Epigastric; Prior surgery; Surgery date: 6+ months; Surgery type: Appy; Additional info: Abd pain TECHNIQUE: Imaging protocol: Computed tomography of the abdomen and pelvis without contrast. Radiation optimization: All CT scans at this facility use at least one of these dose optimization techniques: automated exposure control; mA and/or kV adjustment per patient size (includes targeted exams where dose is matched to clinical indication); or iterative reconstruction. COMPARISON: CT angio chest PE protcl [id number] September 24, 2023. RADIATION DOSE METRICS: Total DLP (mGy-cm): 658.99 FINDINGS: Liver: Normal. No mass. Gallbladder and bile ducts: Normal. No calcified stones. No ductal dilation. Pancreas: Normal. No ductal dilation. Spleen: Normal. No splenomegaly. Adrenal glands: Normal. No mass. Kidneys and ureters: Simple right renal cysts need no follow-up. High density material in the intrarenal collecting systems renal pelves, and ureters bilaterally as well as throughout the urinary bladder. This may be contrast from recent intravascular administration. However, if there has been no such recent intravascular contrast administration, then this is likely blood. Otherwise, unremarkable. Stomach and bowel: Multiple diverticula from the colon. No diverticulitis. Otherwise, unremarkable. Appendix: Appendectomy. Intraperitoneal space: Unremarkable. No free air. No significant fluid collection. Vasculature: Moderate amount of arterial calcification. Lymph nodes: Unremarkable. No enlarged lymph nodes. Urinary bladder: Otherwise, unremarkable urinary bladder. Reproductive: Unremarkable as visualized. Bones/joints: Mild scoliosis. Mild multilevel spondylosis. Osteitis pubis. Otherwise, unremarkable. Soft tissues: Small amount of gas in the anterior left abdominal wall without associated fluid collection or significant fat stranding is likely due to an injection. Otherwise, unremarkable body wall. Otherwise, unremarkable soft tissues. CT/CT abdomen pelvis wo con [id number] IMPRESSION: 1. High density material throughout the intrarenal collecting systems, renal pelves, and ureters bilaterally as well as throughout the urinary bladder. This is probably excreted contrast if intravascular contrast has been recently given. If not, then this is probably blood. Please correlate clinically. 2. Additional details as above. COMMENTS: Consistent with the [place] [employer]'s Incidental Findings Committee white paper (J Am Mansoor Radiol 2018): Any incidental renal lesion less than 1 cm or classified as too small to characterize, or any incidental cystic renal lesion characterized as simple-appearing, is likely benign. No follow-up imaging is recommended for these lesions per consensus recommendations based on imaging criteria.
[2023-10-30] MEDS: morphine 4 mg/mL SDV 1 mL IVP (14:59)
[2023-10-30] MEDS: nicotine 21 mg Patch 1 PATCH TRANSDERMA (15:59)
[2023-10-30 16:09] LABS: Amphetamines Screen Urine Negative (Negative); Barbiturates Screen Urine Negative (Negative); Benzodiazepines Screen Urine Negative (Negative); Cocaine Screen Urine Negative (Negative); Opiate Screen Urine Positive (Negative); PCP Screen Urine Negative (Negative); THC Screen Urine Negative (Negative)
[2023-10-30] MEDS: atorvastatin 40 mg Tablet PO (20:53)
[2023-10-31] VITALS (15 sets, daily range): BP systolic 128–145; BP diastolic 74–100; PULSE 79–118; RESP 14–21; TEMP 36.4–37.4; O2SAT 92–98
[2023-10-31] MEDS: FUROsemide 10 mg/mL SDV 4mL 40 MG IVP ×2 (01:02→12:28)
[2023-10-31 05:47] LABS: Basophils % 0.3 %; Eosinophils # 0.1 10^3/uL (0.0-0.8); Eosinophils % 0.6 %; Hematocrit 43.1 % (37-53); Lymphocytes # 3.2 10^3/uL (0.8-4.8); Lymphocytes % 21.5 %; Mean Corpuscular HGB Conc 32.5 g/dL (30-55); Mean Corpuscular Hemoglobin 29.9 pg (27-33); Mean Corpuscular Volume 91.9 fl (82-101); Mean Platelet Volume 9.8 fL (7.4-10.4); Monocytes # 1.6 10^3/uL (0.2-0.9); Monocytes % 10.5 %; Neutrophils # 9.81 10^3/uL (1.8-7.7); Neutrophils % 66.6 %; Nucleated Red Blood Cells % 0 %; Platelet Count 283 10^3/cmm (157-399); Red Blood Count 4.69 10^6/uL (3.85-5.65); Red Cell Distribution Width 13.4 % (12.1-15.1); White Blood Count 14.74 10^3/uL (3.29-11.43)
[2023-10-31 06:08] LABS: Anion Gap 13.7 (5-19); Blood Urea Nitrogen 21 mg/dL (8-23); Calcium 9.8 mg/dL (8.5-10.5); Carbon Dioxide 32 mmol/L (22-29); Chloride 100 mmol/L (98-107); Glomerular Filtration Rate 76.2 mL/min (90-130); Glucose 115 mg/dL (65-115); Osmolality Calculated 298 mOsm/kg (285-295); Potassium 3.7 mmol/L (3.5-5.1); Sodium 142 mmol/L (136-145)
[2023-10-31] MEDS: budesonide 0.5 mg/2 mL Neb 0.25 MG INHALATION ×2 (07:40→20:21)
[2023-10-31] MEDS: ipratropium-albuterol 3 mL Neb INHALATION ×3 (07:41→20:21)
[2023-10-31] MEDS: enoxaparin 40 mg/0.4 mL Syringe SUBCUT (08:43)
[2023-10-31] MEDS: aspirin 81 mg EC Tablet PO (08:43)
[2023-10-31] MEDS: doxycycline 100 mg Tablet PO ×2 (08:43→17:11)
[2023-10-31] MEDS: pantoprazole 40 mg SDV IVP (08:44)
[2023-10-31] MEDS: metoprolol tartrate 25 mg Tablet PO ×2 (08:47→20:59)
--- NOTE | 2023-10-31 10:16 | P.PN_ITS ---
Subjective 2 Subjective: Ischemic workup is indicated Patient is agreeable for angiogram Spoke with Dr. 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 Continue diuresis Abdominal pain has improved CT abdomen pelvis unremarkable No signs of PE or DVT Vitals/I&O/Wt Last Vital Signs Temp 97.5 F L 10/31/23 07:09 Pulse 104 H 10/31/23 07:49 Resp 16 10/31/23 07:42 BP 136/97 10/31/23 07:09 Pulse Ox 98 10/31/23 07:42 O2 Del Method Nasal Cannula 10/31/23 07:42 O2 Flow Rate 2 10/31/23 07:42 10/30/23 10/31/23 10/31/23 22:59 06:59 14:59 Intake Total 300 / 660 700 / 1360 240 / 240 Output Total 410 / 2070 1350 / 3420 Balance -110 / -1410 -650 / -2060 240 / 240 Weight last 48 hrs Weight 87.271 kg Weight 91.127 kg Weight 89.358 kg Physical Exam 2 Narrative: Signs of fluid load present Currently on room air GCS 15 Nonfocal neuroexam S1, S2 Currently on room air nonfocal neuroexam pleasant and cooperative Data 10/31/23 04:59 10/31/23 04:59 A&P Assessment and plan (1) CHF exacerbation: (2) NSTEMI (non-ST elevated myocardial infarction): (3) Pulmonary edema: Qualifiers: Chronicity: acute Qualified Code(s): J81.0 - Acute pulmonary edema (4) Acute respiratory failure with hypoxemia: (5) COPD exacerbation: Plan Acute systolic CHF exacerbation Continue diuresis No active chest pain Troponin without significant elevation EKG without ischemic or infarctive changes Requested Dr. 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
--- NOTE | 2023-10-31 11:01 | P.CONIM_ITS ---
Providers/Reason For Consult 2 Consulting Physician/Specialty*: Cardiovascular medicine Reason for Consult*: Left ventricular dysfunction Requesting Physician: Hospitalist Attending Physician: Shena Matthew MD History of Present Illness History of Present Illness Tl Nettles is a 62 year old male with no known history of heart disease. He was here on the of last month with chest pain. At that time he had a chest x- ray and a CT of his chest. It suggested a pneumonia. He was treated but did not seem to get 100% better. He came in again 2 nights ago with worsening shortness of breath and cough. He is a relatively poor historian. Chest x-ray this time suggested pulmonary vascular congestion. He had another CAT scan of his chest which showed pulmonary edema. He also had a CT of his abdomen and pelvis for reasons that I cannot determine. He had an echo which showed an ejection fraction of 35%. It was a poor quality study but suggested global hypokinesis. I could not determine wall motion disturbances. He has had -880 mL of urine out. He feels better. He takes no medications at home. 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 He has been a smoker since he was 17 years of age. He tells me has had a stroke but can give me no details. There may be a history of hypertension. He is not a diabetic. He says his cholesterol may have been elevated in the past. He has been put on Lasix intravenously, Protonix, low- dose Lovenox, inhalers, low-dose aspirin, statin, beta-nasir and antibiotics. Review of Systems 2 Narrative: Review of systems is negative. Medications/Allergies Home Medications Medication Instructions Recorded Confirmed Last Taken Type aspirin 81 mg tablet,delayed 81 mg PO DAILY PRN Headache 09/24/23 10/30/23 Unknown History release Allergies Allergy/AdvReac Type Severity Reaction Status Date / Time No Known Allergies Allergy Verified 10/30/23 10:01 Current Medications Generic Name Dose Route Start Last Admin Trade Name Freq PRN Reason Stop Dose Admin Albuterol/Ipratropium 3 ml 10/30/23 14:00 10/31/23 07:41 Ipratropium-Albuterol 3 Ml Neb INHALATION 3 ml Q6H.RESP KIKE Administration Aspirin 81 mg 10/30/23 09:00 10/31/23 08:43 Aspirin 81 Mg Ec Tablet PO 81 mg DAILY KIKE Administration Atorvastatin Calcium 40 mg 10/30/23 21:00 10/30/23 20:53 Atorvastatin 40 Mg Tablet PO 40 mg BEDTIME KIKE Administration Budesonide 0.25 mg 10/30/23 08:00 10/31/23 07:40 Budesonide 0.5 Mg/2 Ml Neb INHALATION 0.25 mg BID.RESPIRATORY KIKE Administration Doxycycline Monohydrate 100 mg 10/30/23 12:05 10/31/23 08:43 Doxycycline 100 Mg Tablet PO 100 mg BID KIKE Administration Protocol Enoxaparin Sodium 40 mg 10/30/23 06:45 10/31/23 08:43 Enoxaparin 40 Mg/0.4 Ml Syringe SUBCUT 40 mg Q24H KIKE Administration Furosemide 40 mg 10/30/23 12:00 10/31/23 01:02 Furosemide 10 Mg/Ml Sdv 4ml IVP 40 mg Q12H KIKE Administration Metoprolol Tartrate 25 mg 10/30/23 09:00 10/31/23 08:47 Metoprolol Tartrate 25 Mg Tablet PO 25 mg BID@0900,2100 KIKE Administration Nicotine 1 patch 10/30/23 15:02 10/30/23 15:59 Nicotine 21 Mg Patch TRANSDERMA 1 patch DAILY KIKE Administration Pantoprazole Sodium 40 mg 10/30/23 06:45 10/31/23 08:44 Pantoprazole 40 Mg Sdv IVP 40 mg Q24H KIKE Administration PFSH Acute 2 PFSH: Medical History (Updated 10/31/23 @ 11:08 by John Owens MD) Cardiomyopathy Elevated troponin HTN (hypertension) with goal to be determined History of CVA (cerebrovascular accident) Surgical History (Updated 10/30/23 @ 06:47 by Saleem Cardozo MD) History of appendectomy Family History (Updated 10/30/23 @ 06:48 by Saleem Cardozo MD) Other CAD (coronary artery disease) Social History (Updated 10/30/23 @ 06:48 by Saleem Cardozo MD) Smoking and tobacco/nicotine status: current every day tobacco/nicotine user Alcohol intake: never Substance/Drug Use: never Vitals/I&O/Wt Last Vital Signs Temp 97.5 F L 10/31/23 07:09 Pulse 104 H 10/31/23 07:49 Resp 16 01/21/24 07:42 BP 136/97 10/31/23 07:09 Pulse Ox 98 10/31/23 07:42 O2 Del Method Nasal Cannula 10/31/23 07:42 O2 Flow Rate 2 10/31/23 07:42 10/30/23 10/31/23 10/31/23 22:59 06:59 14:59 Intake Total 300 / 660 700 / 1360 240 / 240 Output Total 410 / 2070 1350 / 3420 Balance -110 / -1410 -650 / -2060 240 / 240 Weight last 48 hrs Weight 192 lb 6.4 oz Weight 200 lb 14.4 oz Weight 197 lb Physical Exam 2 Narrative: GENERAL: In general he looks older than his stated age and is comfortable lying flat in bed HEENT: Exam within normal limits. NECK: Supple without jugular vein distention. The carotid upstroke is normal without bruits. BACK: Exam normal. LUNGS: Decreased breath sounds bilaterally. Moist rales in the bases. Scattered wheezes. HEART: Regular rate and rhythm. ABDOMEN: Benign without organomegaly or tenderness. EXTREMITIES: No edema. NEUROLOGIC: Exam normal. SKIN: Unremarkable. Data 10/31/23 04:59 10/31/23 04:59 A&P Assessment and plan (1) CHF exacerbation: (2) Transaminitis: (3) Pulmonary edema: Qualifiers: Chronicity: acute Qualified Code(s): J81.0 - Acute pulmonary edema (4) Acute respiratory failure with hypoxemia: (5) COPD exacerbation: (6) Elevated troponin: (7) Cardiomyopathy: Plan I do not know the etiology of his left ventricular dysfunction but at his age and with his history of heavy smoking since a very early age, the most likely culprit is coronary artery disease. He cannot walk on a treadmill. I do not think stress testing will help us. Angiography is the best way to answer the question. Tentatively I have scheduled him for 6:00 in the morning however there is allegedly bad weather coming in tonight. Will do the best we can to get it taken care of then. Consult Attestations 2 Medical Necessity Statement: Hospitalization for management of left ventricular dysfunction and heart failure. and Moderate Time for a total of 40 minutes, includes reviewing past or interval history, examining/interviewing patient, placing orders, counseling patient/family/other support, updating patient/family/other support, discussing plan of care with staff, communicating with other healthcare providers and documenting encounter Diagnoses CHF exacerbation I50.9 Transaminitis R74.01 Pulmonary edema J81.0 Chronicity: acute Acute respiratory failure with hypoxemia J96.01 COPD exacerbation J44.1 Elevated troponin R79.89 Cardiomyopathy I42.9
[2023-10-31] MEDS: nicotine 21 mg Patch 1 PATCH TRANSDERMA (17:11)
[2023-10-31] MEDS: atorvastatin 40 mg Tablet PO (20:59)
[2023-11-01] VITALS (76 sets, daily range): BP systolic 102–147; BP diastolic 62–96; PULSE 80–109; RESP 9–30; TEMP 36.8–36.9; O2SAT 86–99
[2023-11-01] MEDS: FUROsemide 10 mg/mL SDV 4mL 40 MG IVP ×3 (00:18→23:24)
[2023-11-01] MEDS: sodium chloride 0.9% 1,000 ML 50 ML IV (03:55)
[2023-11-01 04:24] LABS: Anion Gap 14.5 (5-19); Blood Urea Nitrogen 28 mg/dL (8-23); Calcium 9.6 mg/dL (8.5-10.5); Carbon Dioxide 30 mmol/L (22-29); Chloride 101 mmol/L (98-107); Glomerular Filtration Rate 76.2 mL/min (90-130); Glucose 117 mg/dL (65-115); Osmolality Calculated 301 mOsm/kg (285-295); Potassium 3.5 mmol/L (3.5-5.1); Sodium 142 mmol/L (136-145)
--- NOTE | 2023-11-01 04:36 | XACV_ITS ---
Exam Room: [facility] Ht: 175 cm Wt: 87 kg BSA: 2.08 m2 Gender: Male : 1960 Any Known Allergies: No known allergies Exam Priority: Routine Indication(s): - Cardiomyopathy Procedure(s): Procedure Description: Diagnostic procedure Procedure Description: Left Heart Catheterization Procedure Description: Left ventriculography Procedure Description: Coronary Angiography Roman PIERRE; Diagnostic Cath Status: Urgent Diagnostic Findings * 62-year-old patient presented with heart failure. Minimal troponin elevation. No angina. Angiography performed from the right radial artery. * Coronary angiography reveals right coronary artery dominance. The left main coronary artery exhibits a 95% stenosis in the distal portion. The left anterior descending and circumflex are essentially normal with minor luminal irregularities. The right coronary artery is the dominant vessel and ends distally as the posterior descending artery. There is a 30% stenosis in the midportion but otherwise the vessel is free of disease. Conclusions 1. Severe left main coronary artery disease with moderate to severe global left ventricular dysfunction. Recommendations * Coronary bypass surgery. Interventional RX Recommendation: CABG Diagnostic RX Recommendation: CABG Anticoagulation: Heparin Ventriculography Ejection Fraction: 25.0 % Left Ventriculography Findings: * Severe global hypokinesis. Pressures Phase:Rest AO : / ( 0 ) @ 5:57:00 AM 107 / 82 ( 93 ) @ 6:04:00 AM 113 / 80 ( 95 ) @ 6:05:00 AM / ( -11 ) @ 6:07:00 AM 132 / 83 ( 104 ) @ 6:11:00 AM 130 / 85 ( 102 ) @ 6:11:00 AM LV : 130 / 2 / 14 @ 6:09:00 AM 136 / 6 / 19 @ 6:10:00 AM 138 / 5 / 19 @ 6:11:00 AM Valves Phase:DefaultPhase AV : 7.0 @ 6:17:40 AM AV Mean Gradient: 17.0 @ 6:17:40 AM 17.0 @ 6:17:40 AM Clinical Evaluation EBL: 5mL-10mL Procedural Details Pre-Procedure Time Out. Identified patient by full name and date of as verbalized by the patient/guarantor. Does the consent match the physician's order: Yes. Accurate & Complete Informed Consent: Yes. Inpatient/Outpatient History & Physical on Chart: Yes. If H&P is completed, is and addenduem needed: No; If yes, is the addendum complete: N/A. Visualize and Verify Site with Patient/Guarantor: N/A. Relevant Radiology Images available: N/A. Pre-op teaching completed and patient verbalized understanding. The risks, benefits, and alternatives of sedation and/or procedure were discussed by physician. The patient agrees to continue. Procedure started. [facility] Clinical Fraility Score: 4: Vulnerable. Syrup Blender Indications: Cardiomyopathy. Chest Pain Symptom Assessment: Asymptomatic. Cardiovascular Instability:No. Correct patient, site and procedure confirmed by cath team. Current diagnosis: Cardiomyopathy. PERRLA. Strong, equal hand music engraver bilaterally. Lungs clear x 5 lobes. IV Site on Arrival: 20 gauge in the left forearm. IV Fluids: 0.9% NaCl at KVO. 0 mL infused prior to high density press laborer. Pre Procedural Pulses: bilateral dorsalis pedis was 2+. Pre Procedural Pulses: bilateral posterior tibial was Doppled. Pre Procedural Pulses: bilateral radial was 3+. Oxygen started at 3liters/min via nasal canula. right groin was prepped with chloroprep then draped in the usual sterile fashion. right radial was prepped with chloroprep then draped in the usual sterile fashion. Physician notified. Baseline sample Acquired. HR: 101 BPM. Patient's family unavailable. Equipment: 5F - Radial. Cardiac Cath Pack. ACIST Manifold Kit Model BT 2000. Heparinized Saline (2 units/mL), 1000 mL bag. Equipment: 5F - Femoral. Equipment: 6F - Femoral. Equipment: 6F - Radial. Physician arrived. Physician scrubbed in. Admit Source: In Patient. Current Diagnosis : Chest Pain. Immediate Pre-Procedure Time Out. Correct Patient: Yes; Correct Procedure: Yes; Correct Site: Yes; Correct Patient Position: Yes; Correct Supplies: Yes; Dried Flammable Prep: Yes; Blood Products Available: N/A;. Lidocaine 1% infiltrated to the right radial. Arterial access obtained. A 6 urdu TIG catheter in over wire. Multiple views taken of left coronary artery. Catheter redirected to the RCA. Multiple views taken of right coronary artery. Catheter removed over the exchange wire. A 5 urdu Angled Pig catheter in over wire. EDP Sample taken: LV 130/2,14; HR: 91 BPM; SpO2: 97%. LV gram performed in GRIJALVA @ 10 mL/second for a total of 30 mL. Patient EF: Abnormal. EDP Sample taken: LV 136/6,19; HR: 90 BPM; SpO2: 98%. Pullback taken: LV 138/5,19; AO 132/83(104); Mean: 17mmHg, Peak to Peak: 7mmHg, SEP: 8sec/min; HR: 92 BPM; SpO2: 95%. Catheter removed over the wire. Physician review of films. Physician scribbed out. A TR Band was successful obtaining hemostatsis at the Right Radial artery insertion site. TR band placed. Hemostasis obtained. Post Procedure: Pulses reassessed and unchanged. PERRLA. Strong, equal hand music engraver bilaterally. No VTE prophylaxis required. Medication waste: Lidocaine- 17 ml. Nitro- 49.8 mg. Heparin- 1000 units. Versed- 1 mg. Fentanyl- 50 mcg. Total IV fluids: 50 mL. Fluoro: 2:09. Contrast type used: Omnipaque 300 mg/mL, 150 mL bottle. [id number]. Post-op diagnosis: CAD; cardiomyopathy. Complications: None. Estimated blood loss: 5mL-10mL. Responsiveness - Normal response to verbal stimuli; alert and oriented, PERRLA. Airway - Unaffected, no intervention required; spontaneous ventilation. Circulation: W/N/L, pulses unchanged. Nausea/Vomiting: No. Procedure completed. Patient transferred by bed to 1st floor. Access Site Site: Right Radial artery Sheath Size: 6 Fr Hemostasis Method: TR Band Hemostasis Success: Successful Procedure Medications Start: 6:00 AM Stop: 6:00 AM Medication: Versed Amount: 1 mg Route: I.V. Start: 6:00 AM Stop: 6:00 AM Medication: Fentanyl Amount: 50 mcg Route: I.V. Start: 6:01 AM Stop: 6:01 AM Medication: Nitrogylcerin Amount: 200 mcg Route: I.A. Start: 6:03 AM Stop: 6:03 AM Medication: Heparin Amount: 5000 units Route: I.V. I, the attending physician, have reviewed and verified all procedure medications. Yes, all medications given per verbal order History/Risk Factors Hypertension: Yes Dyslipidemia: Yes Peripheral Arterial Disease (PAD): No Myocardial Infarction (VA): No Obesity: No Renal Disease: No Tobacco Use: Current/Recent(w/in 1 year) Prior Interventions PCI: No CABG: No Valve Surgery: No Report Signatures Finalized by Dr. John Owens MD on 11/01/2023 06:27 AM
[2023-11-01] MEDS: diphenhydrAMINE 50 mg Capsule PO (05:11)
--- NOTE | 2023-11-01 05:45 | PC.NURSE ---
ammunition assembly i laborer came to get pt for cath procedure at this time.
--- NOTE | 2023-11-01 06:30 | PC.NURSE ---
nurse received pt from photo lab specialist post angiogram. pt alert but drowsy. tr band on right wrist with distal pulse palpable. no bruises or hemtoma present. pt educated on restrictions of right arm and stated understanding. nurse to educate throughout recovery. pt placed on tele and will be monitored per protocol.
--- NOTE | 2023-11-01 06:49 | PM.MISC ---
Miscellaneous Note Note: Angiography this morning revealed a 95% discrete left main stenosis. The circumflex and LAD are essentially without significant disease. There is a 30% stenosis in the mid right coronary artery. He has moderate to severe global left ventricular dysfunction with an ejection fraction of about 25 to 30%. He needs coronary bypass surgery. He will need to be transferred from this facility to the receiving facility. The left main stenosis is too narrow to send him home.
[2023-11-01] MEDS: budesonide 0.5 mg/2 mL Neb 0.25 MG INHALATION ×2 (07:45→19:44)
[2023-11-01] MEDS: ipratropium-albuterol 3 mL Neb INHALATION ×3 (07:46→19:44)
[2023-11-01] MEDS: pantoprazole 40 mg SDV IVP (08:21)
[2023-11-01] MEDS: nicotine 21 mg Patch 1 PATCH TRANSDERMA (08:22)
[2023-11-01] MEDS: doxycycline 100 mg Tablet PO ×2 (08:22→17:47)
[2023-11-01] MEDS: metoprolol tartrate 25 mg Tablet PO ×2 (08:22→20:19)
[2023-11-01] MEDS: aspirin 81 mg EC Tablet PO (08:22)
--- NOTE | 2023-11-01 08:47 | P.PN_ITS ---
Subjective 2 Subjective: Awaiting bed Vitals/I&O/Wt Last Vital Signs Temp 97.9 F 11/02/23 04:15 Pulse 90 11/02/23 08:15 Resp 16 11/02/23 08:15 BP 122/77 11/02/23 04:15 Pulse Ox 95 11/02/23 08:15 O2 Del Method Room Air 11/02/23 08:15 O2 Flow Rate 2 11/01/23 07:45 11/01/23 11/02/23 11/02/23 22:59 06:59 14:59 Intake Total 2001.5 / 2001. Output Total 1190 / 1590 1600 / 3190 Balance 812.5 / 412.5 -1600 / -1187.5 Weight last 48 hrs Weight 85.003 kg Weight 83.915 kg Physical Exam 2 Narrative: Post angio doing well No active chest pain pleasant cooperative GCS 15 Nonfocal neuroexam Data 10/31/23 04:59 11/01/23 03:25 A&P Assessment and plan (1) CHF exacerbation: (2) Cardiomyopathy: Plan Spoke with the rotary drier operator patient has been excepted at [facility] for CABG Status post angiogram doing well Attestations 2 Medical Necessity Statement*: Awaiting bed Coding Level of Care Code Acute Code for [facility] Diagnoses CHF exacerbation I50.9 Cardiomyopathy I42.9
[2023-11-01] MEDS: sodium chloride 0.9% 1,000 ML 100 ML IV (09:31)
--- NOTE | 2023-11-01 09:55 | PC.NURSE ---
Dr. Owens called to report [facility] will accept patient for CABG consult. Accepting physician is Juan and accepting sales and marketing agent is Mia. No beds at [facility] available today 11/01/23.
--- NOTE | 2023-11-01 10:08 | P.MISC_ITS ---
Miscellaneous Note Note: [facility] in [place] has accepted the patient for transfer. The cardiac surgeon I spoke to is Dr. Fowler. I also spoke to the nurse practitioner for the hospitalist service. The admitting hospitalist is Davin. I have made arrangements for the echo and the cardiac catheterization films to be copied on compact disc and sent with the patient. [facility] will call when they have a bed. They will call CSU. I have communicated this information to our hospitalist service here.
--- NOTE | 2023-11-01 11:51 | PM.TDS ---
Transfer Summary Providers Date of Admission: 10/30/23 05:45 Date of Discharge/Transfer: 11/01/23 Attending Provider at Admission: Saleem Cardozo MD Attending Provider at Transfer: Shena Matthew MD Transfer Plans: Anticipated date of transfer: 11/01/23. Diagnoses at Discharge Discharge Diagnosis (1) CHF exacerbation: Status: Acute (2) Transaminitis: Status: Acute (3) Pulmonary edema: Status: Acute Qualifiers: Chronicity: acute Qualified Code(s): J81.0 - Acute pulmonary edema (4) Acute respiratory failure with hypoxemia: Status: Acute (5) COPD exacerbation: Status: Acute (6) Elevated troponin: Status: Acute (7) Cardiomyopathy: Status: Acute Reason for Visit Reason for Visit CP Hospital Course Hospital Course 62-year-old male with symptoms consistent orthopnea and PND, new onset CHF, reduced ejection fraction, cardiomyopathy, cardiology was consulted for angiogram, angiogram revealed 95% discrete left main stenosis, patient needs CABG, he has been accepted by the tertiary center at [facility], Dr. Jin will be the hospitalist and Dr. Fowler will be the process stripper. Patient is chest pain-free, signs of fluid overload improving Currently on 2 L Kidney function is normal. We have arranged DVD for the echo and coronary angiogram as well. EF 25 to 30% with global left ventricular dysfunction. Physical Exam Narrative: Awake and alert Signs of fluid load improving Pleasant and cooperative GCS 15 Currently on 2 L TS Data Studies Completed and Pending Pending at discharge Category Date Time Status Sputum Culture and Gram Stain Stat Lab 10/30/23 06:40 Uncollected Completed Studies During Hospitalization Category Date Time Status CT abdomen pelvis wo con [id number] Routine Cat Scan 10/30/23 14:31 Completed CTA chest [CT angio chest PE protcl [id number]] Stat Cat Scan 10/30/23 05:25 Completed SWEATER OPERATOR request for service Routine Exams 11/01/23 04:36 Completed XR chest 1V portable [id number] Stat Exams 10/30/23 04:36 Completed CV. echo complete* [id number] Routine Ultrasound 10/30/23 06:40 Completed Laboratory Last Values WBC 14.74 10^3/uL (3.29-11.43) H 10/31/23 04:59 RBC 4.69 10^6/uL (3.85-5.65) 10/31/23 04:59 Hgb 14.00 g/dL (11.27-16.99) 10/31/23 04:59 Hct 43.1 % (37-53) 10/31/23 04:59 MCV 91.9 fl (82-101) 10/31/23 04:59 MCH 29.9 pg (27-33) 10/31/23 04:59 MCHC 32.5 g/dL (30-55) 10/31/23 04:59 RDW 13.4 % (12.1-15.1) 10/31/23 04:59 Plt Count 283 10^3/cmm (157-399) 10/31/23 04:59 MPV 9.8 fL (7.4-10.4) 10/31/23 04:59 Neut % (Auto) 66.6 % 10/31/23 04:59 Lymph % (Auto) 21.5 % 10/31/23 04:59 Dickey % (Auto) 10.5 % 10/31/23 04:59 Eos % (Auto) 0.6 % 10/31/23 04:59 Baso % (Auto) 0.3 % 10/31/23 04:59 Neut # (Auto) 9.81 10^3/uL (1.8-7.7) H 10/31/23 04:59 Lymph # (Auto) 3.2 10^3/uL (0.8-4.8) 10/31/23 04:59 Dickey # (Auto) 1.6 10^3/uL (0.2-0.9) H 10/31/23 04:59 Eos # (Auto) 0.1 10^3/uL (0.0-0.8) 10/31/23 04:59 Baso # (Auto) 0.0 10^3/uL (0.0-0.1) 10/31/23 04:59 Nucleated RBC % (auto) 0 % 10/31/23 04:59 Nucleated RBCs # 0.0 /100WBC 10/31/23 04:59 PT 14.70 SECONDS (12.1-14.9) 10/30/23 07:18 INR 1.12 (0.8-1.2) 10/30/23 07:18 D-Dimer 1.07 ug/mLFEU (0-0.59) H 10/30/23 04:49 Specimen Type Arterial 10/30/23 07:36 Sample Site Radial, left 10/30/23 07:36 ABG pH 7.43 (7.35-7.45) 10/30/23 07:36 ABG pCO2 39.5 mmHg (35-45) 10/30/23 07:36 ABG pO2 76.2 mmHg (80.0-100.0) L 10/30/23 07:36 ABG PO2/FiO2 Ratio 0 10/30/23 07:36 ABG HCO3 26.2 mmol/L (22-26) H 10/30/23 07:36 ABG Base Excess 1.8 mmol/L (-2.0-2.0) 10/30/23 07:36 Wayne Test Pos 10/30/23 07:36 Hematocrit 44.3 % (42-52) 10/30/23 07:36 O2 Delivery Device Room air 10/30/23 07:36 FiO2 21.0 % 10/30/23 07:36 Environmental Systems Coordinator ID [place] 10/30/23 07:36 Sodium 142 mmol/L (136-145) 11/01/23 03:25 Potassium 3.5 mmol/L (3.5-5.1) 11/01/23 03:25 Chloride 101 mmol/L (98-107) 11/01/23 03:25 Carbon Dioxide 30 mmol/L (22-29) H 11/01/23 03:25 Anion Gap 14.5 (5-19) 11/01/23 03:25 BUN 28 mg/dL (8-23) H 11/01/23 03:25 Creatinine 1.0 mg/dL (0.7-1.2) 11/01/23 03:25 GFR Calculation 76.2 mL/min (90-130) L 11/01/23 03:25 Glucose 117 mg/dL (65-115) H 11/01/23 03:25 Estimat Average Glucose 123 10/30/23 04:49 Hemoglobin A1c 5.9 % (4.0-6.0) 10/30/23 04:49 Calculated Osmolality 301 mOsm/kg (285-295) H 11/01/23 03:25 Lactic Acid 1.2 mmol/L (0.5-2.2) 10/30/23 04:49 Calcium 9.6 mg/dL (8.5-10.5) 11/01/23 03:25 Phosphorus 4.3 mg/dL (2.5-4.5) 10/30/23 04:49 Magnesium 1.9 mg/dL (1.7-2.3) 10/30/23 04:49 Total Bilirubin 0.4 mg/dL (0.15-1.2) 10/30/23 04:49 AST 43 U/L (0-40) H 10/30/23 04:49 ALT 45 U/L (0-41) H 10/30/23 04:49 Alkaline Phosphatase 79 U/L (40-130) 10/30/23 04:49 Troponin T Baseline 52 ng/L (0-15) H 10/30/23 04:49 Troponin T 120 Minute 56.99 ng/L (0-15) H 10/30/23 07:18 Delta Troponin T 4.99 ABS# (0-10) 10/30/23 07:18 Troponin T Hi Sens 6Hr 45.31 ng/L (0-15) H 10/30/23 11:58 Troponin T Hi Sens 6Hr Delta -6.69 ng/L (0-12) L 10/30/23 11:58 C-Reactive Protein 13.8 mg/L (0.0-4.9) H 10/30/23 04:49 NT-Pro-B Natriuret Pep 3650 pg/mL (0-125) H 10/30/23 04:49 Total Protein 6.7 g/dL (6.6-8.7) 10/30/23 04:49 Albumin 4.1 g/dL (3.5-5.2) 10/30/23 04:49 Globulin 2.6 g/dL (1.3-4.6) 10/30/23 04:49 Triglycerides 68 mg/dL (0-150) 10/30/23 04:49 Cholesterol 171 mg/dL (0-200) 10/30/23 04:49 LDL Cholesterol, Calc 112 mg/dL (50-129) 10/30/23 04:49 HDL Cholesterol 45 mg/dL (60-100) L 10/30/23 04:49 LDL/HDL Ratio 2.49 RATIO (0.00-3.22) 10/30/23 04:49 Cholesterol/HDL Ratio 3.80 mg/dL (1.0-5.00) 10/30/23 04:49 Procalcitonin 0.05 ng/mL (0-0.5) 10/30/23 04:49 TSH 2.43 uIU/mL (0.27-4.20) 10/30/23 04:49 Urine Color Straw (Yellow) 10/30/23 06:45 Urine Appearance Clear (CLEAR) 10/30/23 06:45 Urine pH 5 (5-7) 10/30/23 06:45 Ur Specific [place] 1.010 (1.005-1.030) 10/30/23 06:45 Urine Protein Neg (Negative) 10/30/23 06:45 Urine Glucose (UA) Norm (Normal) 10/30/23 06:45 Urine Ketones Negative (Negative) 10/30/23 06:45 Urine Blood Neg (Negative) 10/30/23 06:45 Urine Nitrate Negative (Negative) 10/30/23 06:45 Urine Bilirubin Neg (Negative) 10/30/23 06:45 Urine Urobilinogen Norm mg/dL (Negative) 10/30/23 06:45 Ur Leukocyte Esterase Negative (Negative) 10/30/23 06:45 Urine Opiates Screen Positive ng/mL (Negative) H 10/30/23 15:46 Ur Barbiturates Screen Negative ng/mL (Negative) 10/30/23 15:46 Ur Phencyclidine Scrn Negative ng/mL (Negative) 10/30/23 15:46 Ur Amphetamines Screen Negative ng/mL (Negative) 10/30/23 15:46 U Benzodiazepines Scrn Negative ng/mL (Negative) 10/30/23 15:46 Urine Cocaine Screen Negative ng/mL (Negative) 10/30/23 15:46 U Marijuana (THC) Screen Negative ng/mL (Negative) 10/30/23 15:46 Influenza Type A Ag negative (Negative) 10/30/23 04:49 Influenza Type B Ag negative (Negative) 10/30/23 04:49 SARS-CoV-2 Ag (Rapid) negative (Negative) 10/30/23 04:49 Radiology Impressions Chest X-Ray 10/30/23 04:36 IMPRESSION: Imaging findings suggestive of pulmonary congestion. Pneumonia should be excluded clinically. Chest CTA 10/30/23 05:25 IMPRESSION: 1. No pulmonary embolus. 2. Imaging findings of pulmonary edema with small bilateral pleural effusions. COMMENTS: The presence of pulmonary emphysema on CT is an independent risk factor for lung cancer. In the absence of a history or active diagnosis of lung cancer, it is recommended that this patient with emphysema be evaluated for enrollment in a low dose CT lung cancer screening program. Abdomen/Pelvis CT 10/30/23 14:31 IMPRESSION: 1. High density material throughout the intrarenal collecting systems, renal pelves, and ureters bilaterally as well as throughout the urinary bladder. This is probably excreted contrast if intravascular contrast has been recently given. If not, then this is probably blood. Please correlate clinically. 2. Additional details as above. COMMENTS: Consistent with the [employer]'s Incidental Findings Committee white paper (J Am Mansoor Radiol 2018): Any incidental renal lesion less than 1 cm or classified as too small to characterize, or any incidental cystic renal lesion characterized as simple-appearing, is likely benign. No follow-up imaging is recommended for these lesions per consensus recommendations based on imaging criteria. Recent Clincial Data Last Vital Signs Temp 98.2 F 11/01/23 10:45 Pulse 96 11/01/23 10:30 Resp 27 H 11/01/23 10:30 BP 130/79 11/01/23 10:45 Pulse Ox 93 11/01/23 10:30 O2 Del Method Nasal Cannula 11/01/23 07:45 O2 Flow Rate 2 11/01/23 07:45 Vital Signs Temp Pulse Resp BP Pulse Ox O2 Del Method O2 Flow Rate 11/01/23 10:45 98.2 F 130/79 11/01/23 10:30 96 27 H 105/74 93 11/01/23 10:15 94 16 134/87 94 11/01/23 10:00 92 20 H 126/96 96 11/01/23 09:45 90 17 119/75 92 11/01/23 09:30 92 24 H 98 11/01/23 09:22 96 15 94 11/01/23 09:00 84 16 96 11/01/23 08:45 95 14 92 11/01/23 08:30 98.2 F 99 15 95 11/01/23 08:15 103 H 20 H 144/87 97 11/01/23 08:00 84 14 123/81 99 11/01/23 07:45 92 14 105/76 96 11/01/23 07:45 83 14 98 Nasal Cannula 2 11/01/23 07:30 86 15 105/70 96 Nasal Cannula 2 11/01/23 07:15 80 15 112/73 96 Nasal Cannula 2 11/01/23 07:00 89 13 105/79 97 Nasal Cannula 2 11/01/23 06:45 83 12 118/62 97 Nasal Cannula 2 11/01/23 06:35 101 H 11/01/23 06:30 90 15 102/77 87 L Room Air 11/01/23 04:00 98.4 F 104 H 125/89 96 Room Air 11/01/23 00:00 98.3 F 104 H 16 128/76 93 Room Air Intake & Output/Weight 10/30/23 10/31/23 11/01/23 11/02/23 06:59 06:59 06:59 06:59 Intake Total 1360 / 1360 1210 / 1210 Output Total 1380 / 1380 3420 / 3420 3970 / 3970 220 / 220 Balance -1380 / -1380 -2060 / -2060 -2760 / -2760 -220 / -220 Weight 91.127 kg 87.271 kg 83.915 kg Vitals Last Vital Signs Temp 98.2 F 11/01/23 10:45 Pulse 96 11/01/23 10:30 Resp 27 H 11/01/23 10:30 BP 130/79 11/01/23 10:45 Pulse Ox 93 11/01/23 10:30 O2 Del Method Nasal Cannula 11/01/23 07:45 O2 Flow Rate 2 11/01/23 07:45 TS Medications Medications Acetaminophen (Acetaminophen 325 Mg Tablet) 650 mg PO Q6H PRN PRN Reason: Mild/Mod Pain Or Temp >/= 101 Albuterol/Ipratropium (Ipratropium-Albuterol 3 Ml Neb) 3 ml INHALATION QID.RESPIRATORY KIKE Last Admin: 11/01/23 07:46 Dose: 3 ml Aspirin (Aspirin 81 Mg Ec Tablet) 81 mg PO DAILY KIKE Last Admin: 11/01/23 08:22 Dose: 81 mg Atorvastatin Calcium (Atorvastatin 40 Mg Tablet) 40 mg PO BEDTIME KIKE Last Admin: 10/31/23 20:59 Dose: 40 mg Budesonide (Budesonide 0.5 Mg/2 Ml Neb) 0.25 mg INHALATION BID.RESPIRATORY [facility] Last Admin: 11/01/23 07:45 Dose: 0.25 mg Doxycycline Monohydrate (Doxycycline 100 Mg Tablet) 100 mg PO BID [facility]; Protocol Last Admin: 11/01/23 08:22 Dose: 100 mg Enoxaparin Sodium (Enoxaparin 40 Mg/0.4 Ml Syringe) 40 mg SUBCUT Q24H [facility] Last Admin: 11/01/23 08:35 Dose: Not Given Furosemide (Furosemide 10 Mg/Ml Sdv 4ml) 40 mg IVP Q12H KIKE Last Admin: 11/01/23 00:18 Dose: 40 mg Sodium Chloride (Sodium Chloride 0.9%) 1,000 mls @ 50 mls/hr IV .Q20H ONE Stop: 11/01/23 23:59 Last Admin: 11/01/23 03:55 Dose: 50 mls/hr Sodium Chloride (Sodium Chloride 0.9%) 1,000 mls @ 100 mls/hr IV .Q10H [facility] Last Admin: 11/01/23 09:31 Dose: 100 mls/hr Metoprolol Tartrate (Metoprolol Tartrate 25 Mg Tablet) 25 mg PO BID@0900,2100 [facility] Last Admin: 11/01/23 08:22 Dose: 25 mg Morphine Sulfate (Morphine 4 Mg/Ml Sdv 1 Ml) 2 mg IVP Q4H PRN PRN Reason: SEVERE PAIN Naloxone HCl (Naloxone 0.4 Mg/Ml Sdv) 0.1 mg IVP Q2M PRN PRN Reason: OPIATERV Nicotine (Nicotine 21 Mg Patch) 1 patch TRANSDERMA DAILY [facility] Last Admin: 11/01/23 08:22 Dose: 1 patch Ondansetron HCl (Ondansetron 2 Mg/Ml Sdv 2 Ml) 4 mg IVP Q8H PRN PRN Reason: vomiting, or N/V if npo Pantoprazole Sodium (Pantoprazole 40 Mg Sdv) 40 mg IVP Q24H [facility] Last Admin: 11/01/23 08:21 Dose: 40 mg Discontinued Medications Albuterol/Ipratropium (Ipratropium-Albuterol 3 Ml Neb) 3 ml INHALATION Q4H.RESPIRATORY [facility] Last Admin: 10/30/23 09:04 Dose: 3 ml Albuterol/Ipratropium (Ipratropium-Albuterol 3 Ml Neb) 3 ml INHALATION Q6H.RESP KIKE Last Admin: 10/31/23 20:21 Dose: 3 ml Carvedilol (Carvedilol 3.125 Mg Tablet) 3.125 mg PO BID KIKE Diltiazem HCl (Diltiazem 5 Mg/Ml Sdv 5 Ml) 15 mg IVP ONCE ONE Stop: 10/30/23 04:57 Last Admin: 10/30/23 05:01 Dose: 15 mg Diphenhydramine HCl (Diphenhydramine 50 Mg Capsule) 50 mg PO ONCE ONE Stop: 10/31/23 11:10 Last Admin: 10/31/23 16:25 Dose: Not Given Diphenhydramine HCl (Diphenhydramine 50 Mg Capsule) 50 mg PO ONCE ONE Stop: 11/01/23 05:01 Last Admin: 11/01/23 05:11 Dose: 50 mg Fentanyl (Fentanyl 50 Mcg/Ml Inj 2ml) Confirm Administered Dose 100 mcg .ROUTE .STK-MED ONE Stop: 11/01/23 04:51 Furosemide (Furosemide 10 Mg/Ml Sdv 4ml) 40 mg IVP ONCE ONE Stop: 10/30/23 05:45 Last Admin: 10/30/23 05:50 Dose: 40 mg Heparin Sodium (Porcine) (Heparin 5,000 Unit/Ml Inj 1 Ml) Confirm Administered Dose 5,000 unit .ROUTE .STK-MED ONE Stop: 11/01/23 04:52 Heparin Sodium (Porcine) (Heparin 5,000 Unit/Ml Inj 1 Ml) Confirm Administered Dose 5,000 unit .ROUTE .STK-MED ONE Stop: 11/01/23 06:03 Sodium Chloride (Sodium Chloride 0.9%) 1,000 mls @ 50 mls/hr IV .Q20H ONE Stop: 11/01/23 07:08 Last Admin: 10/31/23 16:25 Dose: Not Given Lidocaine HCl (Xylocaine) Confirm Administered Dose 20 mls @ as directed .ROUTE .STK-MED ONE Stop: 11/01/23 04:52 Sodium Chloride (Sodium Chloride 0.9%) Confirm Administered Dose 1,000 mls @ as directed .ROUTE .STK-MED ONE Stop: 11/01/23 05:52 Iohexol (Iohexol 350 Mg/Ml 500 Ml Btl (Per Ml)) 0 ml IV ONCE ONE Stop: 10/30/23 05:43 Last Admin: 10/30/23 05:42 Dose: 100 ml Methylprednisolone Sodium Succinate (Methylprednisolone Sod Succ 40 Mg/Ml Inj) 40 mg IVP Q8H [facility] Last Admin: 10/30/23 08:03 Dose: 40 mg Midazolam HCl (Midazolam 1 Mg/Ml Inj 2 Ml) Confirm Administered Dose 2 mg .ROUTE .STK-MED ONE Stop: 11/01/23 04:52 Morphine Sulfate (Morphine 4 Mg/Ml Sdv 1 Ml) 4 mg IVP ONCE ONE Stop: 10/30/23 14:35 Last Admin: 10/30/23 14:59 Dose: 4 mg Nicotine (Nicotine 21 Mg Patch) 1 patch TRANSDERMA DAILY [facility] Nitroglycerin (Nitroglycerin 5 Mg/Ml Sdv 10 Ml) Confirm Administered Dose 50 mg .ROUTE .STK-MED ONE Stop: 11/01/23 04:50 Allergies No Known Allergies Allergy (Verified 10/30/23 10:01) Home Medications aspirin 81 mg tablet,delayed release 81 mg PO DAILY PRN Headache 09/24/23 [History Confirmed 10/30/23] Discharge Plan Discharge Condition: Stable Prescriptions: No Action aspirin [Aspir-81] 81 mg Tablet,Delayed Release (Dr/Ec) 81 mg PO DAILY PRN (Reason: Headache) Transfer Attestations Time Spent in Transfer Care: greater than 30 min Quality Metrics Clinical Quality Measures [ No reported AMI, CVA or VTE this stay] Coding Level of Care Code Acute Code for [facility] Fwd Diagnoses CHF exacerbation I50.9 Transaminitis R74.01 Pulmonary edema J81.0 Chronicity: acute Acute respiratory failure with hypoxemia J96.01 COPD exacerbation J44.1 Elevated troponin R79.89 Cardiomyopathy I42.9
[2023-11-01] MEDS: atorvastatin 40 mg Tablet PO (20:19)
[2023-11-02] VITALS (28 sets, daily range): BP systolic 103–144; BP diastolic 65–89; PULSE 78–101; RESP 6–21; TEMP 36.3–36.9; O2SAT 84–97
[2023-11-02] MEDS: enoxaparin 40 mg/0.4 mL Syringe SUBCUT (05:59)
[2023-11-02] MEDS: nicotine 21 mg Patch 1 PATCH TRANSDERMA (08:11)
[2023-11-02] MEDS: aspirin 81 mg EC Tablet PO (08:11)
[2023-11-02] MEDS: doxycycline 100 mg Tablet PO ×2 (08:11→17:51)
[2023-11-02] MEDS: metoprolol tartrate 25 mg Tablet PO ×2 (08:11→20:13)
[2023-11-02] MEDS: pantoprazole 40 mg SDV IVP (08:12)
[2023-11-02] MEDS: budesonide 0.5 mg/2 mL Neb 0.25 MG INHALATION (08:15)
[2023-11-02] MEDS: ipratropium-albuterol 3 mL Neb INHALATION ×2 (08:15→12:05)
--- NOTE | 2023-11-02 08:46 | P.PN_ITS ---
Subjective 2 Subjective: Awaiting bed placement from [facility] no overnight events overnight Vitals/I&O/Wt Last Vital Signs Temp 97.9 F 11/02/23 04:15 Pulse 90 11/02/23 08:15 Resp 16 11/02/23 08:15 BP 122/77 11/02/23 04:15 Pulse Ox 95 11/02/23 08:15 O2 Del Method Room Air 11/02/23 08:15 O2 Flow Rate 2 11/01/23 07:45 11/01/23 11/02/23 11/02/23 22:59 06:59 14:59 Intake Total 2001.5 / 2001. Output Total 1190 / 1590 1600 / 3190 Balance 812.5 / 412.5 -1600 / -1187.5 Weight last 48 hrs Weight 85.003 kg Weight 83.915 kg Physical Exam 2 Narrative: Sitting at the bedside Doing well on room air No active chest pain Hemodynamic stable Pleasant and cooperative Data 10/31/23 04:59 11/01/23 03:25 A&P Assessment and plan (1) CHF exacerbation: (2) Cardiomyopathy: (3) NSTEMI (non-ST elevated myocardial infarction): (4) Pulmonary edema: Qualifiers: Chronicity: acute Qualified Code(s): J81.0 - Acute pulmonary edema (5) Acute respiratory failure with hypoxemia: Plan Patient needs CABG will be transferred to [facility], has been accepted by the hospitalist and cardiology service, Attestations 2 Medical Necessity Statement*: Awaiting bed Coding Level of Care Code Acute Code for [facility] Fw Diagnoses CHF exacerbation I50.9 Cardiomyopathy I42.9 NSTEMI (non-ST elevated myocardial infarction) I21.4 Pulmonary edema J81.0 Chronicity: acute Acute respiratory failure with hypoxemia J96.01
--- NOTE | 2023-11-02 08:49 | PM.PN ---
Subjective Subjective: No change overnight. The patient remains comfortable, hemodynamically stable and without any chest pain. Cat does not have a bed yet. Vitals/I&O/Wt Last Vital Signs Temp 97.9 F 11/02/23 04:15 Pulse 90 11/02/23 08:15 Resp 16 11/02/23 08:15 BP 122/77 11/02/23 04:15 Pulse Ox 95 11/02/23 08:15 O2 Del Method Room Air 11/02/23 08:15 O2 Flow Rate 2 11/01/23 07:45 11/01/23 11/02/23 11/02/23 22:59 06:59 14:59 Intake Total 2001.5 / 2001.5 Output Total 1190 / 1590 1600 / 3190 Balance 812.5 / 412.5 -1600 / -1187.5 Weight last 48 hrs Weight 187 lb 6.4 oz Weight 185 lb Physical Exam Narrative: GENERAL: In general he looks and feels well HEENT: Exam within normal limits. NECK: Supple without jugular vein distention. The carotid upstroke is normal without bruits. BACK: Exam normal. LUNGS: Clear. HEART: Regular rate and rhythm. ABDOMEN: Benign without organomegaly or tenderness. EXTREMITIES: No edema. NEUROLOGIC: Exam normal. SKIN: Unremarkable. Data 10/31/23 04:59 11/01/23 03:25 A&P Assessment and plan (1) CHF exacerbation: (2) Elevated troponin: (3) Cardiomyopathy: (4) Transaminitis: (5) Pulmonary edema: Qualifiers: Chronicity: acute Qualified Code(s): J81.0 - Acute pulmonary edema (6) CAD (coronary artery disease): Plan Await transfer to [place] for coronary bypass surgery. Attestations Medical Necessity Statement*: Awaiting transfer to [place] and Straight Forward/Low Time for a total of 20 minutes, includes reviewing past or interval history, examining/interviewing patient, counseling patient/family/other support, updating patient/family/other support and documenting encounter Diagnoses CHF exacerbation I50.9 Elevated troponin R79.89 Cardiomyopathy I42.9 Transaminitis R74.01 Pulmonary edema J81.0 Chronicity: acute CAD (coronary artery disease) I25.10
[2023-11-02] MEDS: FUROsemide 10 mg/mL SDV 4mL 40 MG IVP (12:32)
[2023-11-02] MEDS: atorvastatin 40 mg Tablet PO (20:12)
--- NOTE | 2023-11-02 21:34 | PC.NURSE ---
[facility] arrived at 2130 to transfer patient to [facility].
== END 2023-11-02 21:30 | disposition short-term general hospital (02) | DRG 286 ==
LOC: ER 05:49 → CSU 05:59
PROVIDERS: Internal Medicine Cardiovascular Disease; Admitting Provider Family Medicine; Emergency Provider Emergency Medicine; Visit Provider Internal Medicine
PROC: 4A023N7 Measurement of Cardiac Sampling and Pressure, Left Heart, Percutaneous Approach (ICD-10-PCS; principal; 2023-11-01 06:00)
DX: I11.0 Hypertensive heart disease with heart failure (principal); I50.21 Acute systolic (congestive) heart failure; J96.01 Acute respiratory failure with hypoxia; J44.1 Chronic obstructive pulmonary disease with (acute) exacerbation; I47.19 Other supraventricular tachycardia; Z86.73 Personal history of transient ischemic attack (TIA), and cerebral infarction without residual deficits; F17.210 Nicotine dependence, cigarettes, uncomplicated; F32.A Depression, unspecified; I25.10 Atherosclerotic heart disease of native coronary artery without angina pectoris; I42.9 Cardiomyopathy, unspecified; Z56.0 Unemployment, unspecified; R74.01 Elevation of levels of liver transaminase levels; R79.89 Other specified abnormal findings of blood chemistry; I48.91 Unspecified atrial fibrillation
CPT/HCPCS: 36415; 36600; 71045; 71275; 74176; 80048; 80053; 80061; 80306; 81003; 82803; 83036; 83605; 83735; 83880; 84100; 84145; 84443; 84484; 85025; 85378; 85610; 86140; 87426; 87804; 93005; 93306; 93458; 94640; 94664; 96372; 96374; 96375; 96376; 99152; 99153; 99285; C1769; C1887; C1894; C9113; J1644; J1650; J1940; J2250; J2270; J2920; J3010; J3490; J7030; J7626; Q0163; Q9967

== ENCOUNTER 2024-05-29 13:25 | Emergency (ER) | payer OTHER, MEDICAID, SELFPAY ==
[2024-05-29 13:38] VITALS: BP 181/115; PULSE 106; TEMP 36.6; O2SAT 97; BMI 25.8
--- NOTE | 2024-05-29 13:39 | USCV_ITS ---
Tl Nettles Age: 63 Gender: M : 1960 Exam Date: 05/29/2024 14:29 Ordering Phys: Swetha Mejias MD Technologist: ENEIDA Exam Location: [facility] Indication: Pain HISTORY: Lower extremity pain. PROCEDURES: Venous duplex imaging was performed in only the left lower extremity. The following venous structures were evaluated: common femoral vein, profunda vein, proximal portion of the greater saphenous vein, superficial femoral vein, and the popliteal vein. In addition, the posterior tibial and peroneal trunk were evaluated. Serial compression, augmentation maneuvers, and spectral Doppler flow evaluation were performed. FINDINGS: No evidence of DVT seen in any vessel visualized at this time. CONCLUSIONS No evidence of left lower extremity DVT. Raheel Oakes MD (Electronically Signed) Final Date: 29 May 2024 16:09 S
--- NOTE | 2024-05-29 13:39 | XRR_ITS ---
PROCEDURE INFORMATION: Exam: XR Left Femur Exam date and time: 05/29/2024 1:48 PM Age: 63 years old Clinical indication: Patient HX: Left upper leg pain over the last 2 days states been a sharp pain really on his lateral thigh denies any injuries states is worse with ambulation; Additional info: Injury TECHNIQUE: Imaging protocol: Radiologic exam of the left femur. Views: 2 views. COMPARISON: CT abdomen pelvis con [id number] 10/30/2023 3:15 PM FINDINGS: Bones/joints: No fracture or dislocation. No acute osseous, joint, or soft tissue abnormality. . No acute fracture. Soft tissues: Unremarkable. XR/XR femur LT min 2V* [id number] IMPRESSION: No acute findings.
--- NOTE | 2024-05-29 13:42 | ED_ITS ---
HPI - Extremity Problem General: Chief complaint: Extremity Problem,Nontraumatic Stated complaint: left leg pain Time Seen by Provider: 05/29/24 13:33 Source: patient Mode of arrival: ambulatory Limitations: no limitations History of Present Illness: 63-year-old male states been having left upper leg pain over the last 2 days states been a sharp pain really on his lateral thigh denies any injuries states is worse with ambulation he denies any fever denies any sores. Denies any pain elsewhere denies any abdominal or testicle pain Associated symptoms: Deny chest pain, fever(s) or rash Related Data Home Medications Medication Instructions Recorded Confirmed aspirin 81 mg tablet,delayed 81 mg PO DAILY PRN Headache 09/24/23 05/29/24 release apixaban 5 mg tablet (Eliquis) 5 mg PO BID 05/29/24 05/29/24 atorvastatin 80 mg tablet 80 mg PO QPM 05/29/24 05/29/24 carvedilol 6.25 mg tablet 3.125 mg PO BID 05/29/24 05/29/24 furosemide 20 mg tablet 20 mg PO DAILY 05/29/24 05/29/24 gabapentin 300 mg capsule 300 mg PO TID 05/29/24 05/29/24 lisinopril 10 mg tablet 5 mg PO DAILY 05/29/24 05/29/24 magnesium oxide 800 mg PO BID 05/29/24 05/29/24 potassium chloride 20 mEq 20 meq PO DAILY 05/29/24 05/29/24 tablet,extended release Previous Rx's Medication Instructions Recorded methocarbamol 750 mg tablet 750 mg PO Q6H PRN spasms #20 tabs 05/29/24 naproxen 500 mg tablet (Naprosyn) 500 mg PO BID PRN pain #20 tabs 05/29/24 Allergies Allergy/AdvReac Type Severity Reaction Status Date / Time No Known Allergies Allergy Verified 05/29/24 13:41 Review of Systems Const: Denies: fever(s), chills, body aches or change in appetite ENMT: Denies: throat pain or dental pain Card: Denies: chest pain Resp: Denies: dyspnea GI: Denies: abdominal pain, nausea, vomiting or diarrhea Musc: Reports: extremity pain; Denies: neck pain or back pain Skin/Breast: Denies: rash Neuro: Denies: headache(s) PFSH ED PFSH: Medical History CAD (coronary artery disease) Transaminitis NSTEMI (non-ST elevated myocardial infarction) CHF exacerbation COPD exacerbation Acute respiratory failure with hypoxemia Pulmonary edema Cardiomyopathy Elevated troponin HTN (hypertension) with goal to be determined History of CVA (cerebrovascular accident) Surgical History History of appendectomy Family History (Updated 10/30/23 @ 06:48 by Saleem Cardozo MD) Other CAD (coronary artery disease) Social History Smoking and tobacco/nicotine status: current every day tobacco/nicotine user Alcohol intake: never Substance/Drug Use: never Physical Exam Const: COMMON NORMALS: no acute distress, patient oriented x3 and healthy appearing HENMT: COMMON NORMALS: normocephalic and atraumatic HEAD & SCALP: normocephalic and atraumatic Neck/C-Spine: COMMON NORMALS: full ROM and supple Chest: COMMONS NORMALS: normal inspection of the chest Resp: COMMON NORMALS: normal respiratory effort Cardio: COMMON NORMALS: regular rate, regular rhythm and No murmurs present (Cardio) RATE: regular rate RHYTHM: regular rhythm Extremity: COMMON NORMALS: normal to inspection and full ROM NARRATIVE EXTREMITY EXAM: Tenderness over left thigh no warmth to touch no erythema no abscess no deformity noted distal pulses sensation intact Neuro: COMMON NORMALS: patient oriented x3, moves all extremities and no focal motor deficits Psych: COMMON NORMALS: mental status grossly normal, Normal thought process present and cooperative THOUGHT PROCESS: Normal thought process present Skin: COMMON NORMALS: no rashes or lesions noted and no wounds GENERAL SKIN EXAM: no rashes or lesions noted Course Vital Signs: Vital signs: Vital Signs Temperature 97.9 F 05/29/24 13:38 Pulse Rate 84 05/29/24 15:00 Respiratory Rate 17 05/29/24 13:49 Blood Pressure 158/79 05/29/24 15:00 Pulse Oximetry 97 05/29/24 15:00 Oxygen Delivery Me thod Room Air 05/29/24 15:00 MDM - Extremity (Nontraumatic) Medical Decision Making Patient presents for left leg pain likely muscular his exam here is benign imaging is normal as well patient stable for discharge follow-up PCP return if worsening he understands agrees to plan Medical Records I reviewed the patient's medical records. Lab Data I reviewed the patient's lab results. Radiology Impressions Femur X-Ray 05/29/24 13:39 IMPRESSION: No acute findings. All radiology interpretation(s) finalized by discharge Discharge Plan Discharge Patient Disposition: Home Clinical Impression: Leg pain, left Condition: Stable Prescriptions: New methocarbamol 750 mg tablet 750 mg PO Q6H PRN (Reason: spasms) Qty: 20 0RF Naprosyn 500 mg tablet 500 mg PO BID PRN (Reason: pain) Qty: 20 0RF No Action potassium chloride 20 mEq Tablet Extended Release 20 meq PO DAILY magnesium oxide 400 mg magnesium Tablet 800 mg PO BID atorvastatin 80 mg Tablet 80 mg PO QPM carvedilol 6.25 mg Tablet 3.125 mg PO BID Rx Instructions: must administer with a meal/food lisinopril 10 mg Tablet 5 mg PO DAILY gabapentin 300 mg Capsule 300 mg PO TID furosemide 20 mg tablet 20 mg PO DAILY Eliquis 5 mg Tablet 5 mg PO BID aspirin [Aspir-81] 81 mg Tablet,Delayed Release (Dr/Ec) 81 mg PO DAILY PRN (Reason: Headache) Discharge Orders: Discharge ED (Routine); Ordered 05/29/24 Ordered By: Swetha Mejias Discharge Diet: Advance as tolerated Discharge Activity: Resume usual activity Patient Instructions: Leg Pain (ED) Coding Level of Care Code ED Electroencephalographic Technician for Josep Lazo
[2024-05-29 13:49] VITALS: RESP 17
[2024-05-29] MEDS: morphine 4 mg/mL SDV 1 mL IM (13:49)
--- NOTE | 2024-05-29 13:51 | PC.PHAR ---
PT IS [facility] 05/29/24 1:50PM. PT HAS RX BOTTLES-REALLY HARD TO READ DOSAGES SO I VERIFIED WITH HIM AND WILL FOLLOW UP WITH [facility].
[2024-05-29 15:00] VITALS: BP 158/79; PULSE 84; O2SAT 97
[2024-05-29 15:16] VITALS: PULSE 87; O2SAT 97
== END 2024-05-29 15:17 | disposition home or self-care (01) ==
PROVIDERS: Emergency Provider Emergency Medicine
DX: M79.605 Pain in left leg (principal); Z79.01 Long term (current) use of anticoagulants; Z79.82 Long term (current) use of aspirin; Z72.0 Tobacco use; I25.10 Atherosclerotic heart disease of native coronary artery without angina pectoris; I25.2 Old myocardial infarction; I11.0 Hypertensive heart disease with heart failure; I50.9 Heart failure, unspecified; J44.9 Chronic obstructive pulmonary disease, unspecified; Z86.73 Personal history of transient ischemic attack (TIA), and cerebral infarction without residual deficits
CPT/HCPCS: 73552; 93971; 96372; 99284; J2270

== ENCOUNTER 2024-08-23 14:07 | Outpatient (CLI) | payer OTHER, SELFPAY ==
--- NOTE | 2024-08-23 14:12 | MR_ITS ---
WS: [id number] MRI LUMBAR SPINE NONCONTRAST TECHNIQUE: Sagittal T1, T2 and STIR imaging. Axial T1 and T2 imaging. CLINICAL INFORMATION: LUMBAR RADICULOPATHY COMPARISON: None. FINDINGS: Counting performed from the craniocervical junction. 13 rib-bearing thoracic type vertebral bodies. 5 nonrib-bearing lumbar vertebral bodies considered L1-L5. Segmentation anomaly C2-3 on the business continuity coordinator imaging. Mild lumbar curve. No acute compression. Mild disc bulging L3-L4 and L4-L5. L1-L2: Mild annular bulging. Mild facet arthropathy. Spinal canal and foramen are patent. L2-L3: Mild annular bulging. Slight effacement of the ventral thecal sac. Slight narrowing of the sub articular recess bilaterally. Moderate facet arthropathy. Mild RIGHT greater than LEFT foraminal narr owing. L3-L4: Mild disc bulging with shallow central protrusion. Narrowing of the LEFT greater than RIGHT valentine barticular recess. Moderate facet arthropathy. Moderate LEFT and mild RIGHT foraminal narrowing. L4-L5: Mild annular bulging. Narrowing subarticular recess bilaterally. Moderate facet arthropathy. L EFT eccentric disc bulging with mild to moderate LEFT foraminal narrowing. Mild RIGHT foraminal narro wing. L5-S1: Mild annular bulging. Moderate facet arthropathy. Mild far LEFT foraminal narrowing. RIGHT for amen is patent. Moderate facet arthropathy. Visualized pelvic bony structures: Normal. Paravertebral soft tissues: Normal. Peripelvic RIGHT renal cyst. Mild central canal stenosis on the business continuity coordinator imaging at C5-C7. MR/MR lumbar spine wo con* [id number] IMPRESSION: 1. Counting performed from the craniocervical junction. 13 rib-bearing thora cic type vertebral bodies. 5 nonrib-bearing lumbar vertebral bodies considered L1-L5. 2. LEFT foraminal protrusion L3-4 impinges the exiting LEFT L3 nerve root wit h moderate LEFT foraminal narrowing. 3. Mild to moderate LEFT L4-5 foraminal narrowing impinges the exiting LEFT L4 nerve root. 4. Annular bulging with narrowing of the LEFT greater than RIGHT L3-4 and bila teral L4-5 subarticular recess. 5. Mild facet arthropathy L3-L5
== END 2024-08-23 14:08 | disposition home or self-care (01) ==
LOC: RAD 14:07
PROVIDERS: Visit Provider Family Medicine
DX: M47.896 Other spondylosis, lumbar region (principal); M99.63 Osseous and subluxation stenosis of intervertebral foramina of lumbar region; M47.898 Other spondylosis, sacral and sacrococcygeal region; M54.16 Radiculopathy, lumbar region
CPT/HCPCS: 72148